=== PATIENT | male | born 1985 | race Caucasian/White ===

== ENCOUNTER 2023-02-24 11:18 | Emergency (ER) | payer OTHER, SELFPAY ==
--- NOTE | ~2023-02-24 | XR_ITS ---
EXAMINATION: XR CHEST CLINICAL INFORMATION: Lower extremity edema. Question CHF. COMPARISON: None available. TECHNIQUE: Frontal view of the chest was obtained. FINDINGS: No significant abnormality is noted involving the heart, lungs, mediastinum, bony thorax or soft tissues. XR/XR chest 1V IMPRESSION: Unremarkable examination.
--- NOTE | ~2023-02-24 | US_ITS ---
EXAMINATION: US VENOUS ULTRASOUND WITH DOPPLER LOWER EXTREMITY, BILATERAL CLINICAL INFORMATION: Hip is not visualized. COMPARISON: None available. TECHNIQUE: Ultrasound of the deep veins is performed from the hip to the calf with compression sonography and color and pulse Doppler assessment. Spectral analysis with color-flow imaging is performed. FINDINGS: RIGHT: There is normal venous compression and respiratory variation and augmented flow. The visualized common femoral vein, superficial femoral vein, profunda femoral vein, popliteal vein, and the trifurcation region shows no evidence of deep venous thrombosis. The peroneal vein is not visualized due to calf swelling. There is no significant popliteal fossa cyst. There is a small lymph nodes in the right groin measuring 5.4 x 1.1 x 2.8 cm. LEFT: There is normal venous compression and respiratory variation and augmented flow. The visualized common femoral vein, superficial femoral vein, profunda femoral vein, popliteal vein, and the trifurcation region shows no evidence of deep venous thrombosis. The peroneal vein is not visualized due to calf swelling. There is no significant popliteal fossa cyst. There is small lymph nodes seen left groin measuring 1.5 x 0.7 x 0.9 seen. If the patient's symptoms persist, followup ultrasound in 5 days 7 days might be of value to exclude proximal propagation from a non-visualized calf vein. US/US venous duplex LE BI IMPRESSION: No DVT demonstrated in bilateral lower extremity. Bilateral groin lymph nodes seen.
--- NOTE | ~2023-02-24 | CT_ITS ---
EXAMINATION: CT ANGIOGRAM OF THE CHEST WITH AND WITHOUT CONTRAST (CT PULMONARY ANGIOGRAM FOR PE) CLINICAL INFORMATION: Reason for Exam tachy, hypoxia COMPARISON: None available. TECHNIQUE: Prior to contrast administration, noncontrast localization images were obtained. Subsequently, multidetector volumetric imaging was performed from the thoracic inlet to below the diaphragms following the administration of 80 mL Omnipaque 350 intravenous contrast. No contrast reaction reported Sagittal, coronal, and MIP oblique sagittal reformatted images were obtained on the CT workstation, uploaded to PACS, and reviewed. This CT examination was performed using dose optimization techniques as appropriate, variously including the following: *Automated exposure control *Adjustment of mA and/or kV according to patient size (this includes techniques or standardized protocols for targeted exams where dose is matched to indication/reason for exam; i.e. extremities or head) *Use of iterative reconstruction technique Total exam dose-length product 640 mGy-cm FINDINGS: QUALITY OF STUDY/CONTRAST BOLUS: Satisfactory. PULMONARY ARTERIES: No pulmonary emboli. THORACIC AORTA: No aneurysm. LUNG: No focal consolidation, nodules or masses. PLEURA: No pleural effusion or pneumothorax. MEDIASTINUM: Normal heart size. No pericardial effusion. No hilar or mediastinal lymphadenopathy. No evidence of septal bowing or right heart strain. CORONARY ARTERY CALCIFICATION: None visualized on this study. CHEST WALL/AXILLA: No axillary or internal mammary lymphadenopathy. OSSEOUS STRUCTURES: No lytic or sclerotic process seen. UPPER ABDOMEN: Visualized liver, spleen, pancreas and bilateral adrenal glands are unremarkable. No reflux of contrast into the hepatic veins to suggest elevated right heart pressures. CT/CT angio chest PE protocol IMPRESSION: 1. No evidence of PE. 2. No evidence of aortic dissection or aneurysm no evidence of PE. VTE: negative
--- NOTE | 2023-02-24 11:44 | ED_ITS ---
HPI - General Adult General Chief complaint: Extremity Problem <XOCHILT Duran Last Filed: 02/24/23 11:56> Stated complaint: B/L Swollen Legs <XOCHILT Duran - Last Filed: 02/24/23 11:56> Time Seen by Provider: 02/24/23 11:53 <XOCHILT Duran - Last Filed: 02/24/23 11:56> Source: patient <XOCHILT Montoya - Last Filed: 02/24/23 17:02> Mode of arrival: ambulatory <XOCHILT Montoya Last Filed: 02/24/23 17:02> History of Present Illness HPI narrative: 37-year-old male with history of IV drug use presents to the ED c/o worsening bilateral LE swelling & erythema since yesterday. Admits has been walking more than usual for the past couple days. Reports 1 episode of nausea and emesis this morning which has resolved. Denies injury to the area, recent immobility, history of blood clots, blood thinner use, chest pain, shortness of breath, headache, dizziness, lightheadedness, abdominal pain, back pain, change in bladder/bowel habits. <XOCHILT Montoya - Last Filed: 02/24/23 17:02> Onset (ago): day(s) <XOCHILT Montoya - Last Filed: 02/24/23 17:02> Location: left, right and lower extremity <XOCHILT Montoya Last Filed: 02/24/23 17:02> Radiation: non-radiation <XOCHILT Montoya Last Filed: 02/24/23 17:02> Quality: aching <XOCHILT Montoya Last Filed: 02/24/23 17:02> Pain Consistency: constant <XOCHILT Montoya Last Filed: 02/24/23 17:02> Related Data Home medications: Previous Rx's Medication Instructions Recorded doxycycline hyclate 100 mg tablet 100 mg PO BID #14 tabs 02/24/23 cephalexin 500 mg capsule 500 mg PO Q6H 7 days #28 caps 02/25/23 <XOCHILT Duran Last Filed: 02/24/23 11:56> Allergies/adverse reactions: Allergies Allergy/AdvReac Type Severity Reaction Status Date / Time No Known Allergies Allergy Verified 02/24/23 11:45 <XOCHILT Duran - Last Filed: 02/24/23 11:56> Review of Systems Review of Systems: Constitutional: No Fever, No Chills, No Fatigue, No Malaise ENT/Mouth: No Nasal Congestion, No sore throat, No Rhinorrhea, No Swallowing Difficulty Eyes: No Eye Pain, No Swelling, No Redness, No Foreign Body, No Discharge, No Vision Changes Cardiovascular: No Chest Pain, No SOB, No Dyspnea on Exertion, No Orthopnea, +Edema, No Palpitations Respiratory: No Cough, No Sputum, No Wheezing, + Smoker, No Dyspnea Gastrointestinal: + Nausea, + Vomiting, No Diarrhea, No Constipation, No Abdominal pain Genitourinary: No irregular bleeding, No Dysuria, No Urinary Frequency, No Hematuria, No Urinary Incontinence/retention Musculoskeletal: +joint pain, No Myalgias, No Joint Swelling Skin: No Skin Lesions, + rash Neuro: No Weakness, No Numbness, No Paresthesias, No Loss of Consciousness, No Dizziness, No Headache <XOCHILT Montoya Last Filed: 02/24/23 17:02> Yes all other systems are reviewed and are negative <XOCHILT Montoya Last Filed: 02/24/23 17:02> Constitutional: Constitutional: Reports as per HPI <XOCHILT Montoya Last Filed: 02/24/23 17:02> [facility] Past Medical History Attestation statement: The following information was validated with the patient. <XOCHILT Montoya Last Filed: 02/24/23 17:02> Social History Social History: Social History Alcohol intake: never Smoked in Last 30 Days: Yes Use of substances other than those prescribed or required for medical reasons: Yes Substance Use Type: Heroin Substance Use Frequency: Chronic Longstanding Last Used Substance: Days (ago) Any prior treatment program specific to substance use: Yes Advance Directives: No <XOCHILT Duran Last Filed: 02/24/23 11:56> Physical Exam ED Vital Signs: Vital Signs - 24 hr 02/24/23 12:18 02/24/23 19:35 02/24/23 22:38 Temperature 98.2 F 97.6 F 97.8 F Pulse Rate 98 93 71 Respiratory Rate 14 17 18 Blood Pressure 128/82 120/83 121/77 Pulse Oximetry 95 95 96 Oxygen Delivery Method Room Air Room Air 02/25/23 05:55 02/25/23 07:40 02/25/23 10:48 Temperature 98.3 F 98.5 F Pulse Rate 102 H 92 85 Respiratory Rate 18 18 18 Blood Pressure 133/85 141/84 H 129/73 Pulse Oximetry 96 96 94 Oxygen Delivery Method Room Air Room Air BMI result Body Mass Index 41.8 <XOCHILT Duran - Last Filed: 02/24/23 11:56> Vital Signs - 24 hr 02/24/23 12:18 02/24/23 19:35 02/24/23 22:38 Temperature 98.2 F 97.6 F 97.8 F Pulse Rate 98 93 71 Respiratory Rate 14 17 18 Blood Pressure 128/82 120/83 121/77 Pulse Oximetry 95 95 96 Oxygen Delivery Method Room Air Room Air 02/25/23 05:55 02/25/23 07:40 02/25/23 10:48 Temperature 98.3 F 98.5 F Pulse Rate 102 H 92 85 Respiratory Rate 18 18 18 Blood Pressure 133/85 141/84 H 129/73 Pulse Oximetry 96 96 94 Oxygen Delivery Method Room Air Room Air BMI result Body Mass Index 41.8 <XOCHILT Montoya - Last Filed: 02/24/23 17:02> Vital Signs - 24 hr 02/24/23 12:18 02/24/23 19:35 02/24/23 22:38 Temperature 98.2 F 97.6 F 97.8 F Pulse Rate 98 93 71 Respiratory Rate 14 17 18 Blood Pressure 128/82 120/83 121/77 Pulse Oximetry 95 95 96 Oxygen Delivery Method Room Air Room Air 02/25/23 05:55 02/25/23 07:40 02/25/23 10:48 Temperature 98.3 F 98.5 F Pulse Rate 102 H 92 85 Respiratory Rate 18 18 18 Blood Pressure 133/85 141/84 H 129/73 Pulse Oximetry 96 96 94 Oxygen Delivery Method Room Air Room Air BMI result Body Mass Index 41.8 <Zane Mendez - Last Filed: 02/25/23 00:18> Vital Signs - 24 hr 02/24/23 12:18 02/24/23 19:35 02/24/23 22:38 Temperature 98.2 F 97.6 F 97.8 F Pulse Rate 98 93 71 Respiratory Rate 14 17 18 Blood Pressure 128/82 120/83 121/77 Pulse Oximetry 95 95 96 Oxygen Delivery Method Room Air Room Air 02/25/23 05:55 02/25/23 07:40 02/25/23 10:48 Temperature 98.3 F 98.5 F Pulse Rate 102 H 92 85 Respiratory Rate 18 18 18 Blood Pressure 133/85 141/84 H 129/73 Pulse Oximetry 96 96 94 Oxygen Delivery Method Room Air Room Air BMI result Body Mass Index 41.8 <XOCHILT Sterling - Last Filed: 02/25/23 12:14> Const General: cooperative and no acute distress <XOCHILT Montoya - Last Filed: 02/24/23 17:02> Nutritional Appearance: well nourished <XOCHILT Montoya - Last Filed: 02/24/23 17:02> Orientation/consciousness: patient oriented x3 <XCOHILT Montoya - Last Filed: 02/24/23 17:02> Limitations: no limitations <XOCHILT Montoya - Last Filed: 02/24/23 17:02> HENMT Head: Yes normal to inspection and Yes atraumatic <XOCHILT Montoya - Last Filed : 02/24/23 17:02> Ears: hearing grossly normal bilaterally <XOCHILT Montoya - Last Filed: 02/24/23 17:02> General nose exam: Normal external nose present <XOCHILT Montoya Last Filed: 02/24/23 17:02> Face and sinus: Yes normal facial exam <XOCHILT Montoya - Last Filed: 02/24/23 17:02> Eyes General: appearance normal, both eyes and all related structures <XOCHILT Montoya Last Filed: 02/24/23 17:02> EOM: EOMs intact bilaterally <XOCHILT Montoya - Last Filed: 02/24/23 17:02> Neck Neck: Yes normal visual inspection, Yes full ROM and Yes no meningeal signs <XOCHILT Montoya - Last Filed: 02/24/23 17:02> Resp Effort & Inspection: normal respiratory effort, able to speak in complete sentences and no respiratory distress <XOCHILT Montoya - Last Filed: 02/24/23 17:02> Auscultation: clear to auscultation bilaterally <XOCHILT Montoya - Last Filed: 02/24/23 17:02> Cardio Rate: regular rate <XOCHILT Montoya - Last Filed: 02/24/23 17:02> Rhythm: regular rhythm <XOCHILT Montoya - Last Filed: 02/24/23 17:02> Heart sounds: S1 normal heart sound present and S2 normal heart sound present <XOCHILT Montoya - Last Filed: 02/24/23 17:02> Peripheral pulses: Peripheral pulses 2+ throughout <XOCHILT Montoya - Last Filed: 02/24/23 17:02> GI Inspection: Yes normal to inspection <XOCHILT Montoya - Last Filed: 02/24/23 17:02> Palpation (GI): Soft to palpation, nontender, no guarding and not rigid <XOCHILT Montoya - Last Filed: 02/24/23 17:02> Skin Wounds: no wounds <XOCHILT Montoya - Last Filed: 02/24/23 17:02> Neuro General: patient oriented x3, tone normal, moves all extremities and no meningeal signs <XOCHILT Montoya - Last Filed: 02/24/23 17:02> Extrem Other: +Bilateral LE pitting edema R>L with overlying circumferential erythema & warmth, + tender to palpation. No open wounds/deformity/crepitus or leakage. NV intact <XOCHILT Montoya - Last Filed: 02/24/23 17:02> Course Course Course Narrative: This is an RME: Additional HPI, ROS, PE not included below will be deferred to primary provider. This is a 37-year-old male history of IV drug abuse, obesity presenting to the emergency department with complaints of bilateral lower extremity pain, swelling, redness since yesterday. Patient reports this happened suddenly and has been worsening ever since. He reports at times pain is worse with ambulation and better at rest. On exam patient is noted to have erythema and swelling to bilateral lower extremities. It appears to be 2 to 3+ nonpitting edema. Heart rate in the high 100s -150-190s. Saturating 94%. Will try to bring him straight back to the emergency department obtain EKG at this time. <XOCHILT Duran - Last Filed: 02/24/23 11:56> This is an RME: Additional HPI, ROS, PE not included below will be deferred to primary provider. This is a 37-year-old male history of IV drug abuse, obesity presenting to the emergency department with complaints of bilateral lower extremity pain, swelling, redness since yesterday. Patient reports this happened suddenly and has been worsening ever since. He reports at times pain is worse with ambulation and better at rest. On exam patient is noted to have erythema and swelling to bilateral lower extremities. It appears to be 2 to 3+ nonpitting edema. Heart rate in the high 100s -150-190s. Saturating 94%. Will try to bring him straight back to the emergency department obtain EKG at this time. -1500--no leukocytosis. Labs otherwise reassuring. US venous duplex LE BI IMPRESSION: No DVT demonstrated in bilateral lower extremity. ? Bilateral groin lymph nodes seen. CT angio chest PE protocol IMPRESSION: 1.? No evidence of PE. 2.? No evidence of aortic dissection or aneurysm no evidence of PE. ? VTE: negative > will consult hospitalist for potential admission. ED care transferred to XOCHILT Adams pending disposition <XOCHILT Montoya - Last Filed: 02/24/23 17:02> Reevaluation(s) Reevaluation #1: Patient received in sign-out at change of shift pending hospitalist consult and disposition. The patient was seen by Dr Bautista. He feels the patient can be discharged as he is not septic. I evaluated the patient myself, and the patient has no white count, he is afebrile. I feel the rash may be vasculitis rather than cellulitis. Given the IV drug abuse I feel it is appropriate to cover the patient with doxycycline. The patient is interested in detox, a care team consult was ordered <Zane Mendez - Last Filed: 02/25/23 00:18> Time: 17:28 <Zane Andrea - Last Filed: 02/25/23 00:18> Reevaluation #2: Patient was seen by the care team in the extremity at the patient to detox but thus far the patient has a current [address] at [facility]. <Popeye sudhakar Mendez - Last Filed: 02/25/23 00:18> Time: 20:02 <Zane Mendez - Last Filed: 02/25/23 00:18> Reevaluation #3: Care team would like to re-attempt in the morning to placed the patient in rehab. I did send the patient's prescription for doxycycline to his pharmacy he received IV Rocephin in the ER today. <Zane Andrea - Last Filed: 02/25/23 00:18> Time: 00:18 <Zane Mendez - Last Filed: 02/25/23 00:18> Additional Reevaluation(s): 02/25 @ 7am - no acute overnight events. patient resting comfortably this morning. He has been started on abx for LE cellulitis. CARE team to attempt detox bed search again this morning. will continue to monitor. will monitor cows qshift. 12:14pm - Patient seen and evaluated by the recovery team. To bed search is were made to the facilities that allow the patient to smoke there. Unfortunately are no beds available, he would like to go home and continue mike ling from home. Will discharge him on oral antibiotics for lower extremity cellulitis. Stable for discharge home. Physician observation discontinued at this time <XOCHILT Sterling - Last Filed: 02/25/23 12:14> Medications Administered Generic Name Dose Route Start Last Admin Trade Name Freq PRN Reason Stop Dose Admin Doxycycline Monohydrate 100 mg 02/25/23 09:00 02/25/23 08:37 Doxycycline Monohydrate 100 Mg Capsule PO 100 mg BID ARLENE Administration Discontinued Medications Generic Name Dose Route Start Last Admin Trade Name Freq PRN Reason Stop Dose Admin Famotidine 20 mg 02/25/23 10:44 02/25/23 10:54 Famotidine 20 Mg Tablet PO 02/25/23 10:45 20 mg ONCE ONE Administration Ceftriaxone Sodium 1 gm/ 50 mls @ 100 mls/hr 02/24/23 15:03 02/24/23 15:49 Sodium Chloride IV 02/24/23 15:32 Infused ONCE ONE Infusion Iohexol 100 ml 02/24/23 15:49 02/24/23 15:49 Iohexol 350 Mg/Ml 100 Ml Infus..Btl IV 02/24/23 15:50 85 ml ONCE ONE Administration Loperamide HCl 2 mg 02/25/23 10:44 02/25/23 10:54 Loperamide Hcl 2 Mg Capsule PO 02/25/23 10:45 2 mg ONCE ONE Administration Ondansetron HCl 4 mg 02/25/23 10:44 02/25/23 10:54 Ondansetron Odt 4 Mg Tab.Rapdis TRANSLINGU 02/25/23 10:45 4 mg ONCE ONE Administration <XOCHILT Duran - Last Filed: 02/24/23 11:56> Medications Administered Generic Name Dose Route Start Last Admin Trade Name Freq PRN Reason Stop Dose Admin Doxycycline Monohydrate 100 mg 02/25/23 09:00 02/25/23 08:37 Doxycycline Monohydrate 100 Mg Capsule PO 100 mg BID ARLENE Administration Discontinued Medications Generic Name Dose Route Start Last Admin Trade Name Freq PRN Reason Stop Dose Admin Famotidine 20 mg 02/25/23 10:44 02/25/23 10:54 Famotidine 20 Mg Tablet PO 02/25/23 10:45 20 mg ONCE ONE Administration Ceftriaxone Sodium 1 gm/ 50 mls @ 100 mls/hr 02/24/23 15:03 02/24/23 15:49 Sodium Chloride IV 02/24/23 15:32 Infused ONCE ONE Infusion Iohexol 100 ml 02/24/23 15:49 02/24/23 15:49 Iohexol 350 Mg/Ml 100 Ml Infus..Btl IV 02/24/23 15:50 85 ml ONCE ONE Administration Loperamide HCl 2 mg 02/25/23 10:44 02/25/23 10:54 Loperamide Hcl 2 Mg Capsule PO 02/25/23 10:45 2 mg ONCE ONE Administration Ondansetron HCl 4 mg 02/25/23 10:44 02/25/23 10:54 Ondansetron Odt 4 Mg Tab.Rapdis TRANSLINGU 02/25/23 10:45 4 mg ONCE ONE Administration <XOCHILT Montoya - Last Filed: 02/24/23 17:02> Medications Administered Generic Name Dose Route Start Last Admin Trade Name Freq PRN Reason Stop Dose Admin Doxycycline Monohydrate 100 mg 02/25/23 09:00 02/25/23 08:37 Doxycycline Monohydrate 100 Mg Capsule PO 100 mg BID ARLENE Administration Discontinued Medications Generic Name Dose Route Start Last Admin Trade Name Freq PRN Reason Stop Dose Admin Famotidine 20 mg 02/25/23 10:44 02/25/23 10:54 Famotidine 20 Mg Tablet PO 02/25/23 10:45 20 mg ONCE ONE Administration Ceftriaxone Sodium 1 gm/ 50 mls @ 100 mls/hr 02/24/23 15:03 02/24/23 15:49 Sodium Chloride IV 02/24/23 15:32 Infused ONCE ONE Infusion Iohexol 100 ml 02/24/23 15:49 02/24/23 15:49 Iohexol 350 Mg/Ml 100 Ml Infus..Btl IV 02/24/23 15:50 85 ml ONCE ONE Administration Loperamide HCl 2 mg 02/25/23 10:44 02/25/23 10:54 Loperamide Hcl 2 Mg Capsule PO 02/25/23 10:45 2 mg ONCE ONE Administration Ondansetron HCl 4 mg 02/25/23 10:44 02/25/23 10:54 Ondansetron Odt 4 Mg Tab.Rapdis TRANSLINGU 02/25/23 10:45 4 mg ONCE ONE Administration <Zane Mendez - Last Filed: 02/25/23 00:18> Medications Administered Generic Name Dose Route Start Last Admin Trade Name Freq PRN Reason Stop Dose Admin Doxycycline Monohydrate 100 mg 02/25/23 09:00 02/25/23 08:37 Doxycycline Monohydrate 100 Mg Capsule PO 100 mg BID ARLENE Administration Discontinued Medications Generic Name Dose Route Start Last Admin Trade Name Freq PRN Reason Stop Dose Admin Famotidine 20 mg 02/25/23 10:44 02/25/23 10:54 Famotidine 20 Mg Tablet PO 02/25/23 10:45 20 mg ONCE ONE Administration Ceftriaxone Sodium 1 gm/ 50 mls @ 100 mls/hr 02/24/23 15:03 02/24/23 15:49 Sodium Chloride IV 02/24/23 15:32 Infused ONCE ONE Infusion Iohexol 100 ml 02/24/23 15:49 02/24/23 15:49 Iohexol 350 Mg/Ml 100 Ml Infus..Btl IV 02/24/23 15:50 85 ml ONCE ONE Administration Loperamide HCl 2 mg 02/25/23 10:44 02/25/23 10:54 Loperamide Hcl 2 Mg Capsule PO 02/25/23 10:45 2 mg ONCE ONE Administration Ondansetron HCl 4 mg 02/25/23 10:44 02/25/23 10:54 Ondansetron Odt 4 Mg Tab.Rapdis TRANSLINGU 02/25/23 10:45 4 mg ONCE ONE Administration <XOCHILT Sterling - Last Filed: 02/25/23 12:14> Medical Decision Making Medical Decision Making MDM Narrative: 37-year-old male with history of IV drug use presents to the ED c/o worsening bilateral LE swelling & erythema since yesterday. Admits has been walking more than usual for the past couple days. On exam patient initially tachycardic with a HR of 200 in triage, on this pattern chart writer's evaluation heart rate now 98. +bilateral LE pitting edema & warmth w/ttp. Concern for DVT/PE vs cellulitis vs arrhythmia. Low concern for compartment syndrome, fracture, ACS Plan: EKG, labs, lactic/blood cultures, venous duplex ultrasound, CTA, admission Please refer to course for remaining clinical decision making, interpretation of labs/imaging results, and discussions with consultants and/or family members. <XOCHILT Montoya - Last Filed: 02/24/23 17:02> Differential Diagnosis Differential Diagnoses: The differential diagnosis associated with the presentation includes <XOCHILT Montoya - Last Filed: 02/24/23 17:02> As above <XOCHILT Montoya - Last Filed: 02/24/23 17:02> Admission/Observation Consideration of admission/observation: Escalation of care including admission/observation considered <XOCHILT Montoya - Last Filed: 02/24/23 17:02> Lab Data [facility] Lab Attestation statement: I reviewed the patient's lab results. <XOCHILT Montoya - Last Filed: 02/24/23 17:02> Result Diagrams: 02/24/23 12:16 02/24/23 12:16 <XOCHILT Duran - Last Filed: 02/24/23 11:56> Labs: Lab Results 02/24/23 02/24/23 02/24/23 Range/Units 12:16 12:16 12:16 WBC 10.0 (4.8-10.8) X10*3/uL RBC 4.87 (4.60-5.80) X10*6/uL Hgb 12.6 L (14.0-18.0) g/dl Hct 39.5 L (42.0-52.0) % MCV 81.1 (80.0-98.0) fL MCH 25.9 L (27.0-33.0) pg MCHC 31.9 (31.0-36.0) g/dl RDW 15.7 (11.0-16.0) % Plt Count 242 (160-400) X10*3/uL MPV 8.5 L (9.4-12.4) fL Immature Gran % (Auto) 0.3 (0.0-0.4) % Neut % (Auto) 81.2 H (45-73) % Lymph % (Auto) 8.3 L (20-40) % Dickens % (Auto) 8.7 (2-11) % Eos % (Auto) 1.2 (0-4) % Baso % (Auto) 0.3 (0-2) % Lymph # (Auto) 0.8 L (1.2-4.9) X10*3/uL Dickens # (Auto) 0.9 (0.1-1.2) X10*3/uL Eos # (Auto) 0.1 (0.0-0.4) X10*3/uL Baso # (Auto) 0.0 (0.0-0.2) X10*3/uL Abs Immat Gran (auto) 0.03 (0.00-0.03) X10*3/uL Absolute Neuts (auto) 8.1 (2.0-8.3) x10*3/uL Absolute Nucleated RBC 0.000 (0.0-0.012) X10*3/uL Nucleated RBC % (auto) 0.0 (0.0-0.2) /100WBC PT 11.9 (10.0-13.1) SEC INR 1.0 (0.9-1.1) Sodium 137 (135-145) mmol/L Potassium 3.9 (3.3-5.1) mmol/L Chloride 101 (96-108) mmol/L Carbon Dioxide 28 (22-29) mmol/L Anion Gap 12 (12-20) BUN 12 (9-16) mg/dL Creatinine 0.84 (0.5-1.4) mg/dL Estim Creat Clear Calc 171.2 Estimated GFR > 60 Random Glucose 119 H (60-115) mg/dL Lactic Acid (0.5-2.0) mmol/L Calcium 8.4 (8.4-10.2) mg/dL Magnesium 1.8 (1.6-2.6) mg/dL Total Bilirubin 0.6 (0.0-1.0) mg/dL AST 24 (5-37) U/L ALT 26 (0-40) U/L Alkaline Phosphatase 80 (39-117) U/L B-Natriuretic Peptide (<100) pg/mL Total Protein 6.6 (6.5-8.0) g/dL Albumin 3.6 (3.5-5.0) g/dL Urine Opiates Screen (Not Detect) Urine Fentanyl Screen (Not Detect) Ur Barbiturates Screen (Not Detect) Ur Phencyclidine Scrn (Not Detect) Ur Amphetamines Screen (Not Detect) U Benzodiazepines Scrn (Not Detect) Urine Cocaine Screen (Not Detect) U Marijuana (THC) Screen (Not Detect) Ethyl Alcohol mg/dL COVID-19 (RANJAN) (Negative) COVID-19 Clin Com 02/24/23 02/24/23 02/24/23 Range/Units 12:16 12:16 12:16 WBC (4.8-10.8) X10*3/uL RBC (4.60-5.80) X10*6/uL Hgb (14.0-18.0) g/dl Hct (42.0-52.0) % MCV (80.0-98.0) fL MCH (27.0-33.0) pg MCHC (31.0-36.0) g/dl RDW (11.0-16.0) % Plt Count (160-400) X10*3/uL MPV (9.4-12.4) fL Immature Gran % (Auto) (0.0-0.4) % Neut % (Auto) (45-73) % Lymph % (Auto) (20-40) % Dickens % (Auto) (2-11) % Eos % (Auto) (0-4) % Baso % (Auto) (0-2) % Lymph # (Auto) (1.2-4.9) X10*3/uL Dickens # (Auto) (0.1-1.2) X10*3/uL Eos # (Auto) (0.0-0.4) X10*3/uL Baso # (Auto) (0.0-0.2) X10*3/uL Abs Immat Gran (auto) (0.00-0.03) X10*3/uL Absolute Neuts (auto) (2.0-8.3) x10*3/uL Absolute Nucleated RBC (0.0-0.012) X10*3/uL Nucleated RBC % (auto) (0.0-0.2) /100WBC PT (10.0-13.1) SEC INR (0.9-1.1) Sodium (135-145) mmol/L Potassium (3.3-5.1) mmol/L Chloride (96-108) mmol/L Carbon Dioxide (22-29) mmol/L Anion Gap (12-20) BUN (9-16) mg/dL Creatinine (0.5-1.4) mg/dL Estim Creat Clear Calc Estimated GFR Random Glucose (60-115) mg/dL Lactic Acid 1.0 (0.5-2.0) mmol/L Calcium (8.4-10.2) mg/dL Magnesium (1.6-2.6) mg/dL Total Bilirubin (0.0-1.0) mg/dL AST (5-37) U/L ALT (0-40) U/L Alkaline Phosphatase (39-117) U/L B-Natriuretic Peptide 65 (<100) pg/mL Total Protein (6.5-8.0) g/dL Albumin (3.5-5.0) g/dL Urine Opiates Screen (Not Detect) Urine Fentanyl Screen (Not Detect) Ur Barbiturates Screen (Not Detect) Ur Phencyclidine Scrn (Not Detect) Ur Amphetamines Screen (Not Detect) U Benzodiazepines Scrn (Not Detect) Urine Cocaine Screen (Not Detect) U Marijuana (THC) Screen (Not Detect) Ethyl Alcohol mg/dL COVID-19 (RANJAN) Negative (Negative) COVID-19 Clin Com See Note 02/24/23 02/24/23 Range/Units 19:32 22:24 WBC (4.8-10.8) X10*3/uL RBC (4.60-5.80) X10*6/uL Hgb (14.0-18.0) g/dl Hct (42.0-52.0) % MCV (80.0-98.0) fL MCH (27.0-33.0) pg MCHC (31.0-36.0) g/dl RDW (11.0-16.0) % Plt Count (160-400) X10*3/uL MPV (9.4-12.4) fL Immature Gran % (Auto) (0.0-0.4) % Neut % (Auto) (45-73) % Lymph % (Auto) (20-40) % Dickens % (Auto) (2-11) % Eos % (Auto) (0-4) % Baso % (Auto) (0-2) % Lymph # (Auto) (1.2-4.9) X10*3/uL Dickens # (Auto) (0.1-1.2) X10*3/uL Eos # (Auto) (0.0-0.4) X10*3/uL Baso # (Auto) (0.0-0.2) X10*3/uL Abs Immat Gran (auto) (0.00-0.03) X10*3/uL Absolute Neuts (auto) (2.0-8.3) x10*3/uL Absolute Nucleated RBC (0.0-0.012) X10*3/uL Nucleated RBC % (auto) (0.0-0.2) /100WBC PT (10.0-13.1) SEC INR (0.9-1.1) Sodium (135-145) mmol/L Potassium (3.3-5.1) mmol/L Chloride (96-108) mmol/L Carbon Dioxide (22-29) mmol/L Anion Gap (12-20) BUN (9-16) mg/dL Creatinine (0.5-1.4) mg/dL Estim Creat Clear Calc Estimated GFR Random Glucose (60-115) mg/dL Lactic Acid (0.5-2.0) mmol/L Calcium (8.4-10.2) mg/dL Magnesium (1.6-2.6) mg/dL Total Bilirubin (0.0-1.0) mg/dL AST (5-37) U/L ALT (0-40) U/L Alkaline Phosphatase (39-117) U/L B-Natriuretic Peptide (<100) pg/mL Total Protein (6.5-8.0) g/dL Albumin (3.5-5.0) g/dL Urine Opiates Screen POSITIVE H (Not Detect) Urine Fentanyl Screen POSITIVE H (Not Detect) Ur Barbiturates Screen Not Detected (Not Detect) Ur Phencyclidine Scrn Not Detected (Not Detect) Ur Amphetamines Screen Not Detected (Not Detect) U Benzodiazepines Scrn Not Detected (Not Detect) Urine Cocaine Screen POSITIVE H (Not Detect) U Marijuana (THC) Screen Not Detected (Not Detect) Ethyl Alcohol < 10 mg/dL COVID-19 (RANJAN) (Negative) COVID-19 Clin Com <XOCHILT Duran - Last Filed: 02/24/23 11:56> Lab Results 02/24/23 02/24/23 02/24/23 Range/Units 12:16 12:16 12:16 WBC 10.0 (4.8-10.8) X10*3/uL RBC 4.87 (4.60-5.80) X10*6/uL Hgb 12.6 L (14.0-18.0) g/dl Hct 39.5 L (42.0-52.0) % MCV 81.1 (80.0-98.0) fL MCH 25.9 L (27.0-33.0) pg MCHC 31.9 (31.0-36.0) g/dl RDW 15.7 (11.0-16.0) % Plt Count 242 (160-400) X10*3/uL MPV 8.5 L (9.4-12.4) fL Immature Gran % (Auto) 0.3 (0.0-0.4) % Neut % (Auto) 81.2 H (45-73) % Lymph % (Auto) 8.3 L (20-40) % Dickens % (Auto) 8.7 (2-11) % Eos % (Auto) 1.2 (0-4) % Baso % (Auto) 0.3 (0-2) % Lymph # (Auto) 0.8 L (1.2-4.9) X10*3/uL Dickens # (Auto) 0.9 (0.1-1.2) X10*3/uL Eos # (Auto) 0.1 (0.0-0.4) X10*3/uL Baso # (Auto) 0.0 (0.0-0.2) X10*3/uL Abs Immat Gran (auto) 0.03 (0.00-0.03) X10*3/uL Absolute Neuts (auto) 8.1 (2.0-8.3) x10*3/uL Absolute Nucleated RBC 0.000 (0.0-0.012) X10*3/uL Nucleated RBC % (auto) 0.0 (0.0-0.2) /100WBC PT 11.9 (10.0-13.1) SEC INR 1.0 (0.9-1.1) Sodium 137 (135-145) mmol/L Potassium 3.9 (3.3-5.1) mmol/L Chloride 101 (96-108) mmol/L Carbon Dioxide 28 (22-29) mmol/L Anion Gap 12 (12-20) BUN 12 (9-16) mg/dL Creatinine 0.84 (0.5-1.4) mg/dL Estim Creat Clear Calc 171.2 Estimated GFR > 60 Random Glucose 119 H (60-115) mg/dL Lactic Acid (0.5-2.0) mmol/L Calcium 8.4 (8.4-10.2) mg/dL Magnesium 1.8 (1.6-2.6) mg/dL Total Bilirubin 0.6 (0.0-1.0) mg/dL AST 24 (5-37) U/L ALT 26 (0-40) U/L Alkaline Phosphatase 80 (39-117) U/L B-Natriuretic Peptide (<100) pg/mL Total Protein 6.6 (6.5-8.0) g/dL Albumin 3.6 (3.5-5.0) g/dL Urine Opiates Screen (Not Detect) Urine Fentanyl Screen (Not Detect) Ur Barbiturates Screen (Not Detect) Ur Phencyclidine Scrn (Not Detect) Ur Amphetamines Screen (Not Detect) U Benzodiazepines Scrn (Not Detect) Urine Cocaine Screen (Not Detect) U Marijuana (THC) Screen (Not Detect) Ethyl Alcohol mg/dL COVID-19 (RANJAN) (Negative) COVID-19 Clin Com 02/24/23 02/24/23 02/24/23 Range/Units 12:16 12:16 12:16 WBC (4.8-10.8) X10*3/uL RBC (4.60-5.80) X10*6/uL Hgb (14.0-18.0) g/dl Hct (42.0-52.0) % MCV (80.0-98.0) fL MCH (27.0-33.0) pg MCHC (31.0-36.0) g/dl RDW (11.0-16.0) % Plt Count (160-400) X10*3/uL MPV (9.4-12.4) fL Immature Gran % (Auto) (0.0-0.4) % Neut % (Auto) (45-73) % Lymph % (Auto) (20-40) % Dickens % (Auto) (2-11) % Eos % (Auto) (0-4) % Baso % (Auto) (0-2) % Lymph # (Auto) (1.2-4.9) X10*3/uL Dickens # (Auto) (0.1-1.2) X10*3/uL Eos # (Auto) (0.0-0.4) X10*3/uL Baso # (Auto) (0.0-0.2) X10*3/uL Abs Immat Gran (auto) (0.00-0.03) X10*3/uL Absolute Neuts (auto) (2.0-8.3) x10*3/uL Absolute Nucleated RBC (0.0-0.012) X10*3/uL Nucleated RBC % (auto) (0.0-0.2) /100WBC PT (10.0-13.1) SEC INR (0.9-1.1) Sodium (135-145) mmol/L Potassium (3.3-5.1) mmol/L Chloride (96-108) mmol/L Carbon Dioxide (22-29) mmol/L Anion Gap (12-20) BUN (9-16) mg/dL Creatinine (0.5-1.4) mg/dL Estim Creat Clear Calc Estimated GFR Random Glucose (60-115) mg/dL Lactic Acid 1.0 (0.5-2.0) mmol/L Calcium (8.4-10.2) mg/dL Magnesium (1.6-2.6) mg/dL Total Bilirubin (0.0-1.0) mg/dL AST (5-37) U/L ALT (0-40) U/L Alkaline Phosphatase (39-117) U/L B-Natriuretic Peptide 65 (<100) pg/mL Total Protein (6.5-8.0) g/dL Albumin (3.5-5.0) g/dL Urine Opiates Screen (Not Detect) Urine Fentanyl Screen (Not Detect) Ur Barbiturates Screen (Not Detect) Ur Phencyclidine Scrn (Not Detect) Ur Amphetamines Screen (Not Detect) U Benzodiazepines Scrn (Not Detect) Urine Cocaine Screen (Not Detect) U Marijuana (THC) Screen (Not Detect) Ethyl Alcohol mg/dL COVID-19 (RANJAN) Negative (Negative) COVID-19 Clin Com See Note 02/24/23 02/24/23 Range/Units 19:32 22:24 WBC (4.8-10.8) X10*3/uL RBC (4.60-5.80) X10*6/uL Hgb (14.0-18.0) g/dl Hct (42.0-52.0) % MCV (80.0-98.0) fL MCH (27.0-33.0) pg MCHC (31.0-36.0) g/dl RDW (11.0-16.0) % Plt Count (160-400) X10*3/uL MPV (9.4-12.4) fL Immature Gran % (Auto) (0.0-0.4) % Neut % (Auto) (45-73) % Lymph % (Auto) (20-40) % Dickens % (Auto) (2-11) % Eos % (Auto) (0-4) % Baso % (Auto) (0-2) % Lymph # (Auto) (1.2-4.9) X10*3/uL Dickens # (Auto) (0.1-1.2) X10*3/uL Eos # (Auto) (0.0-0.4) X10*3/uL Baso # (Auto) (0.0-0.2) X10*3/uL Abs Immat Gran (auto) (0.00-0.03) X10*3/uL Absolute Neuts (auto) (2.0-8.3) x10*3/uL Absolute Nucleated RBC (0.0-0.012) X10*3/uL Nucleated RBC % (auto) (0.0-0.2) /100WBC PT (10.0-13.1) SEC INR (0.9-1.1) Sodium (135-145) mmol/L Potassium (3.3-5.1) mmol/L Chloride (96-108) mmol/L Carbon Dioxide (22-29) mmol/L Anion Gap (12-20) BUN (9-16) mg/dL Creatinine (0.5-1.4) mg/dL Estim Creat Clear Calc Estimated GFR Random Glucose (60-115) mg/dL Lactic Acid (0.5-2.0) mmol/L Calcium (8.4-10.2) mg/dL Magnesium (1.6-2.6) mg/dL Total Bilirubin (0.0-1.0) mg/dL AST (5-37) U/L ALT (0-40) U/L Alkaline Phosphatase (39-117) U/L B-Natriuretic Peptide (<100) pg/mL Total Protein (6.5-8.0) g/dL Albumin (3.5-5.0) g/dL Urine Opiates Screen POSITIVE H (Not Detect) Urine Fentanyl Screen POSITIVE H (Not Detect) Ur Barbiturates Screen Not Detected (Not Detect) Ur Phencyclidine Scrn Not Detected (Not Detect) Ur Amphetamines Screen Not Detected (Not Detect) U Benzodiazepines Scrn Not Detected (Not Detect) Urine Cocaine Screen POSITIVE H (Not Detect) U Marijuana (THC) Screen Not Detected (Not Detect) Ethyl Alcohol < 10 mg/dL COVID-19 (RANJAN) (Negative) COVID-19 Clin Com <XOCHILT Montoya - Last Filed: 02/24/23 17:02> Lab Results 02/24/23 02/24/23 02/24/23 Range/Units 12:16 12:16 12:16 WBC 10.0 (4.8-10.8) X10*3/uL RBC 4.87 (4.60-5.80) X10*6/uL Hgb 12.6 L (14.0-18.0) g/dl Hct 39.5 L (42.0-52.0) % MCV 81.1 (80.0-98.0) fL MCH 25.9 L (27.0-33.0) pg MCHC 31.9 (31.0-36.0) g/dl RDW 15.7 (11.0-16.0) % Plt Count 242 (160-400) X10*3/uL MPV 8.5 L (9.4-12.4) fL Immature Gran % (Auto) 0.3 (0.0-0.4) % Neut % (Auto) 81.2 H (45-73) % Lymph % (Auto) 8.3 L (20-40) % Dickens % (Auto) 8.7 (2-11) % Eos % (Auto) 1.2 (0-4) % Baso % (Auto) 0.3 (0-2) % Lymph # (Auto) 0.8 L (1.2-4.9) X10*3/uL Dickens # (Auto) 0.9 (0.1-1.2) X10*3/uL Eos # (Auto) 0.1 (0.0-0.4) X10*3/uL Baso # (Auto) 0.0 (0.0-0.2) X10*3/uL Abs Immat Gran (auto) 0.03 (0.00-0.03) X10*3/uL Absolute Neuts (auto) 8.1 (2.0-8.3) x10*3/uL Absolute Nucleated RBC 0.000 (0.0-0.012) X10*3/uL Nucleated RBC % (auto) 0.0 (0.0-0.2) /100WBC PT 11.9 (10.0-13.1) SEC INR 1.0 (0.9-1.1) Sodium 137 (135-145) mmol/L Potassium 3.9 (3.3-5.1) mmol/L Chloride 101 (96-108) mmol/L Carbon Dioxide 28 (22-29) mmol/L Anion Gap 12 (12-20) BUN 12 (9-16) mg/dL Creatinine 0.84 (0.5-1.4) mg/dL Estim Creat Clear Calc 171.2 Estimated GFR > 60 Random Glucose 119 H (60-115) mg/dL Lactic Acid (0.5-2.0) mmol/L Calcium 8.4 (8.4-10.2) mg/dL Magnesium 1.8 (1.6-2.6) mg/dL Total Bilirubin 0.6 (0.0-1.0) mg/dL AST 24 (5-37) U/L ALT 26 (0-40) U/L Alkaline Phosphatase 80 (39-117) U/L B-Natriuretic Peptide (<100) pg/mL Total Protein 6.6 (6.5-8.0) g/dL Albumin 3.6 (3.5-5.0) g/dL Urine Opiates Screen (Not Detect) Urine Fentanyl Screen (Not Detect) Ur Barbiturates Screen (Not Detect) Ur Phencyclidine Scrn (Not Detect) Ur Amphetamines Screen (Not Detect) U Benzodiazepines Scrn (Not Detect) Urine Cocaine Screen (Not Detect) U Marijuana (THC) Screen (Not Detect) Ethyl Alcohol mg/dL COVID-19 (RANJAN) (Negative) COVID-19 Clin Com 02/24/23 02/24/23 02/24/23 Range/Units 12:16 12:16 12:16 WBC (4.8-10.8) X10*3/uL RBC (4.60-5.80) X10*6/uL Hgb (14.0-18.0) g/dl Hct (42.0-52.0) % MCV (80.0-98.0) fL MCH (27.0-33.0) pg MCHC (31.0-36.0) g/dl RDW (11.0-16.0) % Plt Count (160-400) X10*3/uL MPV (9.4-12.4) fL Immature Gran % (Auto) (0.0-0.4) % Neut % (Auto) (45-73) % Lymph % (Auto) (20-40) % Dickens % (Auto) (2-11) % Eos % (Auto) (0-4) % Baso % (Auto) (0-2) % Lymph # (Auto) (1.2-4.9) X10*3/uL Dickens # (Auto) (0.1-1.2) X10*3/uL Eos # (Auto) (0.0-0.4) X10*3/uL Baso # (Auto) (0.0-0.2) X10*3/uL Abs Immat Gran (auto) (0.00-0.03) X10*3/uL Absolute Neuts (auto) (2.0-8.3) x10*3/uL Absolute Nucleated RBC (0.0-0.012) X10*3/uL Nucleated RBC % (auto) (0.0-0.2) /100WBC PT (10.0-13.1) SEC INR (0.9-1.1) Sodium (135-145) mmol/L Potassium (3.3-5.1) mmol/L Chloride (96-108) mmol/L Carbon Dioxide (22-29) mmol/L Anion Gap (12-20) BUN (9-16) mg/dL Creatinine (0.5-1.4) mg/dL Estim Creat Clear Calc Estimated GFR Random Glucose (60-115) mg/dL Lactic Acid 1.0 (0.5-2.0) mmol/L Calcium (8.4-10.2) mg/dL Magnesium (1.6-2.6) mg/dL Total Bilirubin (0.0-1.0) mg/dL AST (5-37) U/L ALT (0-40) U/L Alkaline Phosphatase (39-117) U/L B-Natriuretic Peptide 65 (<100) pg/mL Total Protein (6.5-8.0) g/dL Albumin (3.5-5.0) g/dL Urine Opiates Screen (Not Detect) Urine Fentanyl Screen (Not Detect) Ur Barbiturates Screen (Not Detect) Ur Phencyclidine Scrn (Not Detect) Ur Amphetamines Screen (Not Detect) U Benzodiazepines Scrn (Not Detect) Urine Cocaine Screen (Not Detect) U Marijuana (THC) Screen (Not Detect) Ethyl Alcohol mg/dL COVID-19 (RANJAN) Negative (Negative) COVID-19 Clin Com See Note 02/24/23 02/24/23 Range/Units 19:32 22:24 WBC (4.8-10.8) X10*3/uL RBC (4.60-5.80) X10*6/uL Hgb (14.0-18.0) g/dl Hct (42.0-52.0) % MCV (80.0-98.0) fL MCH (27.0-33.0) pg MCHC (31.0-36.0) g/dl RDW (11.0-16.0) % Plt Count (160-400) X10*3/uL MPV (9.4-12.4) fL Immature Gran % (Auto) (0.0-0.4) % Neut % (Auto) (45-73) % Lymph % (Auto) (20-40) % Dickens % (Auto) (2-11) % Eos % (Auto) (0-4) % Baso % (Auto) (0-2) % Lymph # (Auto) (1.2-4.9) X10*3/uL Dickens # (Auto) (0.1-1.2) X10*3/uL Eos # (Auto) (0.0-0.4) X10*3/uL Baso # (Auto) (0.0-0.2) X10*3/uL Abs Immat Gran (auto) (0.00-0.03) X10*3/uL Absolute Neuts (auto) (2.0-8.3) x10*3/uL Absolute Nucleated RBC (0.0-0.012) X10*3/uL Nucleated RBC % (auto) (0.0-0.2) /100WBC PT (10.0-13.1) SEC INR (0.9-1.1) Sodium (135-145) mmol/L Potassium (3.3-5.1) mmol/L Chloride (96-108) mmol/L Carbon Dioxide (22-29) mmol/L Anion Gap (12-20) BUN (9-16) mg/dL Creatinine (0.5-1.4) mg/dL Estim Creat Clear Calc Estimated GFR Random Glucose (60-115) mg/dL Lactic Acid (0.5-2.0) mmol/L Calcium (8.4-10.2) mg/dL Magnesium (1.6-2.6) mg/dL Total Bilirubin (0.0-1.0) mg/dL AST (5-37) U/L ALT (0-40) U/L Alkaline Phosphatase (39-117) U/L B-Natriuretic Peptide (<100) pg/mL Total Protein (6.5-8.0) g/dL Albumin (3.5-5.0) g/dL Urine Opiates Screen POSITIVE H (Not Detect) Urine Fentanyl Screen POSITIVE H (Not Detect) Ur Barbiturates Screen Not Detected (Not Detect) Ur Phencyclidine Scrn Not Detected (Not Detect) Ur Amphetamines Screen Not Detected (Not Detect) U Benzodiazepines Scrn Not Detected (Not Detect) Urine Cocaine Screen POSITIVE H (Not Detect) U Marijuana (THC) Screen Not Detected (Not Detect) Ethyl Alcohol < 10 mg/dL COVID-19 (RANJAN) (Negative) COVID-19 Clin Com <Zane Mendez - Last Filed: 02/25/23 00:18> Lab Results 02/24/23 02/24/23 02/24/23 Range/Units 12:16 12:16 12:16 WBC 10.0 (4.8-10.8) X10*3/uL RBC 4.87 (4.60-5.80) X10*6/uL Hgb 12.6 L (14.0-18.0) g/dl Hct 39.5 L (42.0-52.0) % MCV 81.1 (80.0-98.0) fL MCH 25.9 L (27.0-33.0) pg MCHC 31.9 (31.0-36.0) g/dl RDW 15.7 (11.0-16.0) % Plt Count 242 (160-400) X10*3/uL MPV 8.5 L (9.4-12.4) fL Immature Gran % (Auto) 0.3 (0.0-0.4) % Neut % (Auto) 81.2 H (45-73) % Lymph % (Auto) 8.3 L (20-40) % Dickens % (Auto) 8.7 (2-11) % Eos % (Auto) 1.2 (0-4) % Baso % (Auto) 0.3 (0-2) % Lymph # (Auto) 0.8 L (1.2-4.9) X10*3/uL Dickens # (Auto) 0.9 (0.1-1.2) X10*3/uL Eos # (Auto) 0.1 (0.0-0.4) X10*3/uL Baso # (Auto) 0.0 (0.0-0.2) X10*3/uL Abs Immat Gran (auto) 0.03 (0.00-0.03) X10*3/uL Absolute Neuts (auto) 8.1 (2.0-8.3) x10*3/uL Absolute Nucleated RBC 0.000 (0.0-0.012) X10*3/uL Nucleated RBC % (auto) 0.0 (0.0-0.2) /100WBC PT 11.9 (10.0-13.1) SEC INR 1.0 (0.9-1.1) Sodium 137 (135-145) mmol/L Potassium 3.9 (3.3-5.1) mmol/L Chloride 101 (96-108) mmol/L Carbon Dioxide 28 (22-29) mmol/L Anion Gap 12 (12-20) BUN 12 (9-16) mg/dL Creatinine 0.84 (0.5-1.4) mg/dL Estim Creat Clear Calc 171.2 Estimated GFR > 60 Random Glucose 119 H (60-115) mg/dL Lactic Acid (0.5-2.0) mmol/L Calcium 8.4 (8.4-10.2) mg/dL Magnesium 1.8 (1.6-2.6) mg/dL Total Bilirubin 0.6 (0.0-1.0) mg/dL AST 24 (5-37) U/L ALT 26 (0-40) U/L Alkaline Phosphatase 80 (39-117) U/L B-Natriuretic Peptide (<100) pg/mL Total Protein 6.6 (6.5-8.0) g/dL Albumin 3.6 (3.5-5.0) g/dL Urine Opiates Screen (Not Detect) Urine Fentanyl Screen (Not Detect) Ur Barbiturates Screen (Not Detect) Ur Phencyclidine Scrn (Not Detect) Ur Amphetamines Screen (Not Detect) U Benzodiazepines Scrn (Not Detect) Urine Cocaine Screen (Not Detect) U Marijuana (THC) Screen (Not Detect) Ethyl Alcohol mg/dL COVID-19 (RANJAN) (Negative) COVID-19 Clin Com 02/24/23 02/24/23 02/24/23 Range/Units 12:16 12:16 12:16 WBC (4.8-10.8) X10*3/uL RBC (4.60-5.80) X10*6/uL Hgb (14.0-18.0) g/dl Hct (42.0-52.0) % MCV (80.0-98.0) fL MCH (27.0-33.0) pg MCHC (31.0-36.0) g/dl RDW (11.0-16.0) % Plt Count (160-400) X10*3/uL MPV (9.4-12.4) fL Immature Gran % (Auto) (0.0-0.4) % Neut % (Auto) (45-73) % Lymph % (Auto) (20-40) % Dickens % (Auto) (2-11) % Eos % (Auto) (0-4) % Baso % (Auto) (0-2) % Lymph # (Auto) (1.2-4.9) X10*3/uL Dickens # (Auto) (0.1-1.2) X10*3/uL Eos # (Auto) (0.0-0.4) X10*3/uL Baso # (Auto) (0.0-0.2) X10*3/uL Abs Immat Gran (auto) (0.00-0.03) X10*3/uL Absolute Neuts (auto) (2.0-8.3) x10*3/uL Absolute Nucleated RBC (0.0-0.012) X10*3/uL Nucleated RBC % (auto) (0.0-0.2) /100WBC PT (10.0-13.1) SEC INR (0.9-1.1) Sodium (135-145) mmol/L Potassium (3.3-5.1) mmol/L Chloride (96-108) mmol/L Carbon Dioxide (22-29) mmol/L Anion Gap (12-20) BUN (9-16) mg/dL Creatinine (0.5-1.4) mg/dL Estim Creat Clear Calc Estimated GFR Random Glucose (60-115) mg/dL Lactic Acid 1.0 (0.5-2.0) mmol/L Calcium (8.4-10.2) mg/dL Magnesium (1.6-2.6) mg/dL Total Bilirubin (0.0-1.0) mg/dL AST (5-37) U/L ALT (0-40) U/L Alkaline Phosphatase (39-117) U/L B-Natriuretic Peptide 65 (<100) pg/mL Total Protein (6.5-8.0) g/dL Albumin (3.5-5.0) g/dL Urine Opiates Screen (Not Detect) Urine Fentanyl Screen (Not Detect) Ur Barbiturates Screen (Not Detect) Ur Phencyclidine Scrn (Not Detect) Ur Amphetamines Screen (Not Detect) U Benzodiazepines Scrn (Not Detect) Urine Cocaine Screen (Not Detect) U Marijuana (THC) Screen (Not Detect) Ethyl Alcohol mg/dL COVID-19 (RANJAN) Negative (Negative) COVID-19 Clin Com See Note 02/24/23 02/24/23 Range/Units 19:32 22:24 WBC (4.8-10.8) X10*3/uL RBC (4.60-5.80) X10*6/uL Hgb (14.0-18.0) g/dl Hct (42.0-52.0) % MCV (80.0-98.0) fL MCH (27.0-33.0) pg MCHC (31.0-36.0) g/dl RDW (11.0-16.0) % Plt Count (160-400) X10*3/uL MPV (9.4-12.4) fL Immature Gran % (Auto) (0.0-0.4) % Neut % (Auto) (45-73) % Lymph % (Auto) (20-40) % Dickens % (Auto) (2-11) % Eos % (Auto) (0-4) % Baso % (Auto) (0-2) % Lymph # (Auto) (1.2-4.9) X10*3/uL Dickens # (Auto) (0.1-1.2) X10*3/uL Eos # (Auto) (0.0-0.4) X10*3/uL Baso # (Auto) (0.0-0.2) X10*3/uL Abs Immat Gran (auto) (0.00-0.03) X10*3/uL Absolute Neuts (auto) (2.0-8.3) x10*3/uL Absolute Nucleated RBC (0.0-0.012) X10*3/uL Nucleated RBC % (auto) (0.0-0.2) /100WBC PT (10.0-13.1) SEC INR (0.9-1.1) Sodium (135-145) mmol/L Potassium (3.3-5.1) mmol/L Chloride (96-108) mmol/L Carbon Dioxide (22-29) mmol/L Anion Gap (12-20) BUN (9-16) mg/dL Creatinine (0.5-1.4) mg/dL Estim Creat Clear Calc Estimated GFR Random Glucose (60-115) mg/dL Lactic Acid (0.5-2.0) mmol/L Calcium (8.4-10.2) mg/dL Magnesium (1.6-2.6) mg/dL Total Bilirubin (0.0-1.0) mg/dL AST (5-37) U/L ALT (0-40) U/L Alkaline Phosphatase (39-117) U/L B-Natriuretic Peptide (<100) pg/mL Total Protein (6.5-8.0) g/dL Albumin (3.5-5.0) g/dL Urine Opiates Screen POSITIVE H (Not Detect) Urine Fentanyl Screen POSITIVE H (Not Detect) Ur Barbiturates Screen Not Detected (Not Detect) Ur Phencyclidine Scrn Not Detected (Not Detect) Ur Amphetamines Screen Not Detected (Not Detect) U Benzodiazepines Scrn Not Detected (Not Detect) Urine Cocaine Screen POSITIVE H (Not Detect) U Marijuana (THC) Screen Not Detected (Not Detect) Ethyl Alcohol < 10 mg/dL COVID-19 (RANJAN) (Negative) COVID-19 Clin Com <XOCHILT Sterling - Last Filed: 02/25/23 12:14> Independent Interpretation I performed an independent interpretation of an: EKG (EKG sinus tachycardia at a rate of 102. QTC 487. No STEMI. Nonischemic. ) <XOCHILT Montoya - Last Filed: 02/24/23 17:02> Radiology Impression Discussion of test interpretation with radiology: I have reviewed the radiologist's reading. <XOCHILT Montoya - Last Filed: 02/24/23 17:02> External Record Review External record reviewed: Inpatient record, Office record, Outpatient record, Prior outpatient labs, Prior outpatient radiology, Primary care record and Outside ED record <XOCHILT Montoya - Last Filed: 02/24/23 17:02> Critical Care Time Critical Care Time Critical Care Time: Yes <XOCHILT Montoya Last Filed: 02/24/23 17:02> Total Critical Care Time: 35 <XOCHILT Montoya - Last Filed: 02/24/23 17:02> Attestation: I have personally provided critical care time exclusive of time spent on separately billable procedures. Time includes review of lab data, radiology results, discussion with consultants, and monitoring for potential dec ompensation. Intervention performed as documented. <XOCHILT Montoya - Last Filed: 02/24/23 17:02> Discharge Plan Discharge Clinical Impression: Bilateral lower leg cellulitis, Active substance abuse <XOCHILT Duran - Last Filed: 02/24/23 11:56> Patient Disposition: Home, Self-Care <XOCHILT Duran - Last Filed: 02/24/23 11:56> Instructions: Cellulitis (ED), Polysubstance Abuse (ED) <XOCHILT Duran - Last Filed: 02/24/23 11:56> Additional Instructions: Take the prescribed antibiotics as prescribed for the skin infection in your legs Follow instructions of care team for detox resources Return for new or worsening symptoms Do not used heroin, it can kill you. <XOCHILT Duran - Last Filed: 02/24/23 11:56> Prescriptions: New doxycycline hyclate 100 mg tablet 100 mg PO BID Qty: 14 0RF cephalexin 500 mg capsule 500 mg PO Q6H 7 Days Qty: 28 0RF <XOCHILT Duran - Last Filed: 02/24/23 11:56>
[2023-02-24 11:45] VITALS: BP 134/86; PULSE 200; RESP 16; TEMP 37.2; O2SAT 94; BMI 41.8
--- NOTE | 2023-02-24 11:48 | ECG_ITS ---
Test Reason : tachycadia Blood Pressure : / mmHG Vent. Rate : 102 BPM Atrial Rate : 102 BPM P-R Int : 150 ms QRS Dur : 088 ms QT Int : 374 ms P-R-T Axes : 046 041 046 degrees QTc Int : 487 ms Sinus tachycardia Otherwise normal ECG No previous ECGs available Referred By: No Kim Electronically Signed By:TOMMY MORAN
[2023-02-24 12:18] VITALS: BP 128/82; PULSE 98; RESP 14; TEMP 36.8; O2SAT 95
[2023-02-24 12:30] LABS: MANUAL DIFF FLAG NO
[2023-02-24 12:36] LABS: Basophils Percent Auto 0.3 % (0-2); Eosinophils Absolute Auto 0.1 X10*3/uL (0.0-0.4); Eosinophils Percent Auto 1.2 % (0-4); Hematocrit 39.5 % (42.0-52.0); Hemoglobin 12.6 g/dl (14.0-18.0); Imm Gran Abs Auto 0.03 X10*3/uL (0.00-0.03); Imm Gran Pct Auto 0.3 % (0.0-0.4); Lymphocytes Absolute Auto 0.8 X10*3/uL (1.2-4.9); Lymphocytes Percent Auto 8.3 % (20-40); Mean Corpuscular HGB Conc 31.9 g/dl (31.0-36.0); Mean Corpuscular Hemoglobin 25.9 pg (27.0-33.0); Mean Corpuscular Volume 81.1 fL (80.0-98.0); Mean Platelet Volume 8.5 fL (9.4-12.4); Monocytes Absolute Auto 0.9 X10*3/uL (0.1-1.2); Monocytes Percent Auto 8.7 % (2-11); Neutrophils Absolute Auto 8.1 x10*3/uL (2.0-8.3); Neutrophils Percent Auto 81.2 % (45-73); Platelet Count 242 X10*3/uL (160-400); Red Blood Count 4.87 X10*6/uL (4.60-5.80); Red Cell Distribution Width 15.7 % (11.0-16.0)
[2023-02-24 12:37] LABS: Prothrombin Time 11.9 SEC (10.0-13.1)
[2023-02-24 12:44] LABS: COVID-19 Test Negative (Negative); IDNOW Serial# 08D9AD1C
[2023-02-24 12:46] LABS: Alanine Aminotransferase 26 U/L (0-40); Albumin Level 3.6 g/dL (3.5-5.0); Alkaline Phosphatase 80 U/L (39-117); Anion Gap 12 (12-20); Aspartate Amino Transferase 24 U/L (5-37); Bilirubin Total 0.6 mg/dL (0.0-1.0); Blood Urea Nitrogen 12 mg/dL (9-16); Calcium 8.4 mg/dL (8.4-10.2); Carbon Dioxide 28 mmol/L (22-29); Chloride 101 mmol/L (96-108); Creatinine Clr Calc Pharmacy 171.2; Estimated Glomerular Filt Rate > 60; Glucose Random 119 mg/dL (60-115); Magnesium 1.8 mg/dL (1.6-2.6); Potassium 3.9 mmol/L (3.3-5.1); Sodium 137 mmol/L (135-145); Total Protein 6.6 g/dL (6.5-8.0)
[2023-02-24 12:52] LABS: B Type Natriuretic Peptide 65 pg/mL (<100)
--- NOTE | 2023-02-24 14:57 | PC.NURSE ---
previous IV blew while pt in CT. IV replaced by Dr. Esposito via u/s, 18g inserted in RAC. pt tolerated well
[2023-02-24] MEDS: cefTRIAXone sodium 1 GM in 0.9 % Sodium Chloride 50 ML IV (15:19)
[2023-02-24] MEDS: iohexoL 350 MG/ML 100 ML INFUS..BTL IV (15:49)
[2023-02-24 19:35] VITALS: BP 120/83; PULSE 93; RESP 17; TEMP 36.4; O2SAT 95
--- NOTE | 2023-02-24 19:51 | MHC.RECOVSUP ---
? Reason for consult RECOVERY SUPPORT o Current location: ED 16 o Identified substance use concern: heroin - Seeking ATS (detox) - Support ? Intervention: o ATS bed search [id number] /in process o Community resources provided o Harm reduction discussion ? Plan: o Bed search in progress to ? Additional information: Patient seeking ATS... I called every where no beds.. Patient has a contact and cant come back for 30days.. Every where else said in the morning
[2023-02-24 19:53] LABS: Ethanol < 10 mg/dL
--- NOTE | 2023-02-24 22:35 | MHC.EDTECH ---
i took over this assignment, at 7p vitals were taken none has been documented since noontime, he needed a urine urine was obtained and sent
[2023-02-24 22:38] VITALS: BP 121/77; PULSE 71; RESP 18; TEMP 36.6; O2SAT 96
[2023-02-24 22:41] LABS: Amphetamine Screen Urine Not Detected (Not Detect); Barbiturates, Urine Not Detected (Not Detect); Benzodiazepines Screen Urine Not Detected (Not Detect); Cannabinoid Screen Urine Not Detected (Not Detect); Cocaine Screen Urine POSITIVE (Not Detect); Fentanyl, urine POSITIVE (Not Detect); Opiate Screen Urine POSITIVE (Not Detect); Phencyclidine Screen Urine Not Detected (Not Detect)
--- NOTE | 2023-02-25 02:06 | PC.NURSE ---
patient sleeping comfortably on stretcher throughout entirety of the night. pt is ambulatory to and from bathroom independently with steady gait. recovery team met with patient and patient is a detox bed search. will CTM
[2023-02-25 05:55] VITALS: BP 133/85; PULSE 102; RESP 18; TEMP 36.8; O2SAT 96
[2023-02-25 07:40] VITALS: BP 141/84; PULSE 92; RESP 18; O2SAT 96
[2023-02-25] MEDS: Doxycycline Monohydrate 100 MG CAPSULE PO (08:37)
[2023-02-25 08:39] VITALS: PULSE 92
--- NOTE | 2023-02-25 08:44 | PC.NURSE ---
Pt on stretcher, airway open and patent, no obvious signs of distress, no difficulty breathing. A&ox4, skin normal for ethnicity, warm, and dry. Lung sounds clr bilaterally. Heart sounds normal. Bowel sounds present all cho, abdomen soft, non-tender. Legs have bilateral edema and redness, warm to touch upper and lower legs. Pt requesting breakfast.
--- NOTE | 2023-02-25 09:16 | PC.NURSE ---
head tennis coach at bedside at this time
--- NOTE | 2023-02-25 09:35 | MHC.RECOVRN ---
Met with pt in ED16 to discuss substance use and desire for treatment. 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 Pt reports being in and out of detox x 3 months. Pt is interested in ATS, however, is only interested in facilities in which smoking is allowed. [facility] is working off of a wait list and [facility] does not have bed availability today.
--- NOTE | 2023-02-25 10:41 | PC.NURSE ---
Pt reports nausea/vomiting and diarrhea about 30 times diarrhea since yesterday, the last time was 10mins ago and vomiting about 5 times since yesterday. Provider notified.
[2023-02-25 10:48] VITALS: BP 129/73; PULSE 85; RESP 18; TEMP 36.9; O2SAT 94
[2023-02-25] MEDS: Famotidine 20 MG TABLET PO (10:54)
[2023-02-25] MEDS: Ondansetron ODT 4 MG TAB.RAPDIS TRANSLINGU (10:54)
[2023-02-25] MEDS: Loperamide HCl 2 MG CAPSULE PO (10:54)
--- NOTE | 2023-02-25 11:45 | MHC.RECOVSUP ---
T/W provided pt with resources to continue ATS bed search from home as he is only interested in a facility that will allow him to smoke and no beds are available at those facilities.
== END 2023-02-25 12:27 | disposition home or self-care (01) ==
PROVIDERS: Physician Assistant; Emergency Provider Emergency Medicine; PCP Family Medicine
DX: L03.116 Cellulitis of left lower limb (principal); L03.115 Cellulitis of right lower limb; F19.10 Other psychoactive substance abuse, uncomplicated; Z20.822 Contact with and (suspected) exposure to COVID-19; R00.0 Tachycardia, unspecified; M79.662 Pain in left lower leg; M79.661 Pain in right lower leg; R60.0 Localized edema; R21 Rash and other nonspecific skin eruption; R11.2 Nausea with vomiting, unspecified; F17.210 Nicotine dependence, cigarettes, uncomplicated; E66.9 Obesity, unspecified; Z68.41 Body mass index [BMI] 40.0-44.9, adult
CPT/HCPCS: 36410; 36415; 71045; 71275; 80053; 80307; 82077; 83605; 83735; 83880; 85025; 85610; 87040; 87147; 87205; 87635; 93005; 93970; 96365; 99285; J0696; Q9967

== ENCOUNTER 2023-03-11 08:48 | Emergency (ER) | payer OTHER, SELFPAY ==
[2023-03-11 09:32] VITALS: BP 140/87; PULSE 97; RESP 18; TEMP 36.6; O2SAT 98; BMI 43.9
[2023-03-11 10:17] LABS: MANUAL DIFF FLAG NO
[2023-03-11 10:19] LABS: Basophils Percent Auto 0.3 % (0-2); Eosinophils Percent Auto 0.2 % (0-4); Hematocrit 45.4 % (42.0-52.0); Hemoglobin 14.5 g/dl (14.0-18.0); Imm Gran Abs Auto 0.04 X10*3/uL (0.00-0.03); Imm Gran Pct Auto 0.3 % (0.0-0.4); Lymphocytes Percent Auto 16.2 % (20-40); Mean Corpuscular HGB Conc 31.9 g/dl (31.0-36.0); Mean Corpuscular Hemoglobin 25.9 pg (27.0-33.0); Mean Corpuscular Volume 81.1 fL (80.0-98.0); Mean Platelet Volume 8.7 fL (9.4-12.4); Monocytes Absolute Auto 1.1 X10*3/uL (0.1-1.2); Monocytes Percent Auto 8.5 % (2-11); Neutrophils Absolute Auto 9.2 x10*3/uL (2.0-8.3); Neutrophils Percent Auto 74.5 % (45-73); Platelet Count 409 X10*3/uL (160-400); Red Cell Distribution Width 15.6 % (11.0-16.0); White Blood Count 12.3 X10*3/uL (4.8-10.8)
[2023-03-11 10:23] LABS: Appearance Urine Cloudy; Color Urine Yellow; Glucose Urine UA Negative (Negative); Leukocyte Esterase Urine Negative (Negative); Nitrite Urine Negative (Negative); PH 5.5 (5.0-9.0); Specific Gravity - Urine 1.025 (1.005-1.025); Urine Blood Negative (Negative); Urine Ketones Negative (Negative); Urine Protein Negative (Neg-Trace)
[2023-03-11 10:32] LABS: Anion Gap 13 (12-20); Blood Urea Nitrogen 19 mg/dL (9-16); Calcium 9.4 mg/dL (8.4-10.2); Carbon Dioxide 26 mmol/L (22-29); Chloride 101 mmol/L (96-108); Creatinine Clr Calc Pharmacy 172.2; Estimated Glomerular Filt Rate > 60; Glucose Random 113 mg/dL (60-115); Potassium 4.4 mmol/L (3.3-5.1); Sodium 136 mmol/L (135-145)
[2023-03-11 11:25] VITALS: BP 138/66; PULSE 90; RESP 18; O2SAT 94
--- NOTE | 2023-03-11 11:58 | ED.GENADULT ---
HPI - General Adult General Chief complaint: General Medical Stated complaint: trouble urinating Time Seen by Provider: 03/11/23 11:24 Source: patient and RN notes reviewed Mode of arrival: ambulatory Limitations: no limitations History of Present Illness HPI narrative: This is a 38 [id number], with a past medical history of polysubstance abuse, who presents to the emergency department with complaints of urinary frequency and difficulty voiding x 3-4 days. Patient reports that he was recently discharged from detox several days ago for IV drug use. During his detox treatment, he was placed on methadone 30mg, and tapered off. He states that over the last several days he at times feel as though he has to strain to get the urine out. He states that he also has felt some urinary frequency. Denies hematuria, dysuria, fever, chills, penile discharge,lesions or rashes. He states some nausea and some diffuse body aches but attributes this to opioid withdrawal. He has not used in over 10 days. He is sexually active, and has no concerns for STIs. No other complaints or concerns at this time. MD complaint: Urinary frequency, ?urine retention. Onset (ago): day(s) Radiation: non-radiation Relieving factors: none Exacerbating factors: none Associated symptoms: denies other symptoms Treatments prior to arrival: none Related Data Previous Rx's Medication Instructions Recorded doxycycline hyclate 100 mg tablet 100 mg PO BID #14 tabs 02/24/23 cephalexin 500 mg capsule 500 mg PO Q6H 7 days #28 caps 02/25/23 Allergies Allergy/AdvReac Type Severity Reaction Status Date / Time No Known Allergies Allergy Verified 03/11/23 09:32 Review of Systems Review of Systems: Constitutional: No Weight loss, No Fever, No Chills, No Night Sweats, No Fatigue, No Malaise ENT/Mouth: No Hearing loss, No Ear Pain, No Nasal Congestion, No Sinus Pain, No Hoarseness, No sore throat, No Rhinorrhea, No Swallowing Difficulty Eyes: No Eye Pain, No Swelling, No Redness, No Foreign Body, No Discharge, No Vision Changes Cardiovascular: No Chest Pain, No SOB, No Dyspnea on Exertion, No Orthopnea, No Edema, No Palpitations Respiratory: No Cough, No Sputum, No Wheezing, No Smoke Exposure, No Dyspnea Gastrointestinal: +Nausea, No Vomiting, No Diarrhea, No Constipation, No Abdominal pain, No Hematochezia, No Melena Genitourinary: No irregular bleeding, No Dysuria, + Urinary Frequency, No Hematuria, + Urinary Incontinence/retention, No Urgency, No Flank Pain, No Urinary Flow Changes, No Hesitancy Musculoskeletal: No joint pain, No Myalgias, No Joint Swelling Skin: No Skin Lesions, No rash Neuro: No Weakness, No Numbness, No Paresthesias, No Loss of Consciousness, No Dizziness, No Headache Psych: No Anxiety/Panic, No Depression, No SI/HI/AH/VH, No Social Issues, Heme/Lymph: No Bruising, No Bleeding,No Lymphadenopathy Endocrine: No Polyuria, No Polydipsia, No Temperature Intolerance Yes all other systems are reviewed and are negative Constitutional: Constitutional: Reports as per [facility] Social History Social History Alcohol intake: never Smoked in Last 30 Days: Yes Use of substances other than those prescribed or required for medical reasons: No Substance Use Type: Heroin Substance Use Frequency Other:: Patient used to use but recent went through rehab Advance Directives: No Advance Directives Information Provided: No Physical Exam ED Vital Signs: Vital Signs - 24 hr 03/11/23 09:32 03/11/23 11:25 Temperature 98 F Pulse Rate 97 90 Respiratory Rate 18 18 Blood Pressure 140/87 H 138/66 Pulse Oximetry 98 94 Oxygen Delivery Method Room Air BMI result Body Mass Index 43.9 Const General: cooperative, comfortable and no acute distress Orientation/consciousness: patient oriented x3 Limitations: no limitations [facility] Head: Yes normal to inspection, Yes normocephalic and Yes atraumatic Ears: hearing grossly normal bilaterally General nose exam: Normal external nose present Face and sinus: Yes normal facial exam Mouth: Normal oral and palatal mucosa present, oropharynx normal and moist mucous membranes Throat: Yes posterior oropharynx normal Eyes General: appearance normal, both eyes and all related structures Eyelids: Yes eyelids normal Conjunctivae: conjunctivae normal Sclerae: sclerae normal Pupils: Equal, round and reactive pupils present EOM: EOMs intact bilaterally Neck Neck: Yes normal visual inspection, Yes full ROM and Yes no lymphadenopathy Lymphatic: no lymphadenopathy noted Chest Chest palpation & inspection: normal inspection of the chest Resp Effort & Inspection: normal respiratory effort and able to speak in complete sentences Auscultation: clear to auscultation bilaterally, no crackles, no rales, no rhonchi and no wheezes Cardio Rate: regular rate Rhythm: regular rhythm Heart sounds: S1 normal heart sound present and S2 normal heart sound present GI Other: mild TTP in epigastrium, no rebound or guarding. Inspection: Yes normal to inspection Palpation (GI): Soft to palpation, no guarding and not rigid General: Yes no CVA tenderness Back/Spine/Pelvis Other: No masses, erythema, step off, TTP throughout the entire back. Back: no CVA tenderness, No mass, No erythema and No warmth Skin General skin exam: no rashes or lesions noted Trauma: no lacerations or abrasions Wounds: no wounds Neuro General: patient oriented x3 and moves all extremities Cranial nerves: Yes Equal, round and reactive pupils present Extrem General: Yes normal to inspection Right upper extremity: normal to inspection Left upper extremity: normal to inspection Right lower extremity: normal to inspection Left lower extremity: normal to inspection Course Reevaluation(s) Reevaluation #1: UA is unremarkable. Pt denies any concerns for STIs. Will obtain dirty urine. Bladder scan pending. Time: 12:12 Reevaluation #2: Bladder scan 225ml, last urination 1 hour ago. I do not suspect urinary retention at this time. Discussed at length that patient's symptoms are likely due to opioid induced urinary retention. GC/chlamydia urine sent to the lab for testing. UA is negative, VSS, pt has no back pain, several abdominal pain, able to tolerate PO, and he is requesting to be discharged as he has court in 1 hour. Discussed red flag symptoms of when to return, patient understands and agrees with plan. Time: 12:30 Medical Decision Making Medical Decision Making MDM Narrative: 38 y/o M, hx of IVDA, who presents to the ER for difficulty voiding and urinary frequency x 3-4 days. On examination, pt is nontoxic appearing, afebrile, and vital signs are WNL. Pt has no back pain, no numbness or tingling. Pts symptoms likely due to methadone/opioid induced side effect. UA negative for UTI. Urine sent for GC/chlamydia. Pt declines wanting to be treated for STIs at this time. No clinical signs of epidural abscess. VSS. Plan: UA and bladder scan ordered. Differential Diagnosis Differential Diagnoses: The differential diagnosis associated with the presentation includes UTI, STI, urinary retention, nephrolithiasis, epidural abscess. Admission/Observation Consideration of admission/observation: Escalation of care including admission/observation considered Lab Data MDM Lab Attestation statement: I reviewed the patient's lab results. 03/11/23 10:13 03/11/23 10:13 Labs: Lab Results 03/11/23 03/11/23 03/11/23 Range/Units 10:13 10:13 10:13 WBC 12.3 H (4.8-10.8) X10*3/uL RBC 5.60 (4.60-5.80) X10*6/uL Hgb 14.5 (14.0-18.0) g/dl Hct 45.4 (42.0-52.0) % MCV 81.1 (80.0-98.0) fL MCH 25.9 L (27.0-33.0) pg MCHC 31.9 (31.0-36.0) g/dl RDW 15.6 (11.0-16.0) % Plt Count 409 H D (160-400) X10*3/uL MPV 8.7 L (9.4-12.4) fL Immature Gran % (Auto) 0.3 (0.0-0.4) % Neut % (Auto) 74.5 H (45-73) % Lymph % (Auto) 16.2 L (20-40) % [place] % (Auto) 8.5 (2-11) % Eos % (Auto) 0.2 (0-4) % Baso % (Auto) 0.3 (0-2) % Lymph # (Auto) 2.0 (1.2-4.9) X10*3/uL [place] # (Auto) 1.1 (0.1-1.2) X10*3/uL Eos # (Auto) 0.0 (0.0-0.4) X10*3/uL Baso # (Auto) 0.0 (0.0-0.2) X10*3/uL Abs Immat Gran (auto) 0.04 H (0.00-0.03) X10*3/uL Absolute Neuts (auto) 9.2 H (2.0-8.3) x10*3/uL Absolute Nucleated RBC 0.000 (0.0-0.012) X10*3/uL Nucleated RBC % (auto) 0.0 (0.0-0.2) /100WBC Sodium 136 (135-145) mmol/L Potassium 4.4 (3.3-5.1) mmol/L Chloride 101 (96-108) mmol/L Carbon Dioxide 26 (22-29) mmol/L Anion Gap 13 (12-20) BUN 19 H (9-16) mg/dL Creatinine 0.85 (0.5-1.4) mg/dL Estim Creat Clear Calc 172.2 Estimated GFR > 60 Random Glucose 113 (60-115) mg/dL Calcium 9.4 D (8.4-10.2) mg/dL Urine Color Yellow Urine Appearance Cloudy Urine pH 5.5 (5.0-9.0) Ur Specific [place] 1.025 (1.005-1.025) Urine Protein Negative (Neg-Trace) mg/dL Urine Glucose (UA) Negative (Negative) mg/dL Urine Ketones Negative (Negative) mg/dL Urine Blood Negative (Negative) Urine Nitrite Negative (Negative) Ur Leukocyte Esterase Negative (Negative) Urine Opiates Screen (Not Detect) Urine Fentanyl Screen (Not Detect) Ur Barbiturates Screen (Not Detect) Ur Phencyclidine Scrn (Not Detect) Ur Amphetamines Screen (Not Detect) U Benzodiazepines Scrn (Not Detect) Urine Cocaine Screen (Not Detect) U Marijuana (THC) Screen (Not Detect) Chlam trachomat DNA PCR (Not Detect.) N.gonorrhoeae DNA (PCR) (Not Detect.) 03/11/23 03/11/23 Range/Units 10:13 12:24 WBC (4.8-10.8) X10*3/uL RBC (4.60-5.80) X10*6/uL Hgb (14.0-18.0) g/dl Hct (42.0-52.0) % MCV (80.0-98.0) fL MCH (27.0-33.0) pg MCHC (31.0-36.0) g/dl RDW (11.0-16.0) % Plt Count (160-400) X10*3/uL MPV (9.4-12.4) fL Immature Gran % (Auto) (0.0-0.4) % Neut % (Auto) (45-73) % Lymph % (Auto) (20-40) % [place] % (Auto) (2-11) % Eos % (Auto) (0-4) % Baso % (Auto) (0-2) % Lymph # (Auto) (1.2-4.9) X10*3/uL [place] # (Auto) (0.1-1.2) X10*3/uL Eos # (Auto) (0.0-0.4) X10*3/uL Baso # (Auto) (0.0-0.2) X10*3/uL Abs Immat Gran (auto) (0.00-0.03) X10*3/uL Absolute Neuts (auto) (2.0-8.3) x10*3/uL Absolute Nucleated RBC (0.0-0.012) X10*3/uL Nucleated RBC % (auto) (0.0-0.2) /100WBC Sodium (135-145) mmol/L Potassium (3.3-5.1) mmol/L Chloride (96-108) mmol/L Carbon Dioxide (22-29) mmol/L Anion Gap (12-20) BUN (9-16) mg/dL Creatinine (0.5-1.4) mg/dL Estim Creat Clear Calc Estimated GFR Random Glucose (60-115) mg/dL Calcium (8.4-10.2) mg/dL Urine Color Urine Appearance Urine pH (5.0-9.0) Ur Specific [place] (1.005-1.025) Urine Protein (Neg-Trace) mg/dL Urine Glucose (UA) (Negative) mg/dL Urine Ketones (Negative) mg/dL Urine Blood (Negative) Urine Nitrite (Negative) Ur Leukocyte Esterase (Negative) Urine Opiates Screen Not Detected (Not Detect) Urine Fentanyl Screen POSITIVE H (Not Detect) Ur Barbiturates Screen Not Detected (Not Detect) Ur Phencyclidine Scrn Not Detected (Not Detect) Ur Amphetamines Screen Not Detected (Not Detect) U Benzodiazepines Scrn Not Detected (Not Detect) Urine Cocaine Screen Not Detected (Not Detect) U Marijuana (THC) Screen Not Detected (Not Detect) Chlam trachomat DNA PCR NOT DETECTED (Not Detect.) N.gonorrhoeae DNA (PCR) NOT DETECTED (Not Detect.) Discharge Plan Discharge Clinical Impression: Urinary frequency, Drug side effects Patient Disposition: Home, Self-Care Instructions: Polyuria (ED) Additional Instructions: Your urine today was normal today. Your urinary symptoms are likely due to methadone. Please continue to stay well hydrated. We are sending your urine out for gonorrhea and chlamydia as this can also cause your symptoms. You declined treatment today for this. If you develop any new or worsening symptoms (fevers, chills, abdominal pain, vomiting, blood in urine, pain with urination, inability to urinate) please return for re-evaluation. Follow up with your primary care physician. Prescriptions: No Action doxycycline hyclate 100 mg tablet 100 mg PO BID Qty: 14 0RF cephalexin 500 mg capsule 500 mg PO Q6H 7 Days Qty: 28 0RF Interventions: ED Discharge Assessment Last Done: 03/11/23 12:27 Discharge Date/Time: 03/11/23 12:28
[2023-03-11 12:20] LABS: Amphetamine Screen Urine Not Detected (Not Detect); Barbiturates, Urine Not Detected (Not Detect); Benzodiazepines Screen Urine Not Detected (Not Detect); Cannabinoid Screen Urine Not Detected (Not Detect); Cocaine Screen Urine Not Detected (Not Detect); Fentanyl, urine POSITIVE (Not Detect); Opiate Screen Urine Not Detected (Not Detect); Phencyclidine Screen Urine Not Detected (Not Detect)
[2023-03-11 14:13] LABS: CT PCR NOT DETECTED (Not Detect.); NG PCR NOT DETECTED (Not Detect.)
== END 2023-03-11 12:28 | disposition home or self-care (01) ==
PROVIDERS: Physician Assistant Medical; Emergency Provider Student in an Organized Health Care Education/Training Program
DX: R35.0 Frequency of micturition (principal); R33.0 Drug induced retention of urine; T40.3X5A Adverse effect of methadone, initial encounter; Y92.9 Unspecified place or not applicable; R10.13 Epigastric pain; M79.10 Myalgia, unspecified site; R11.0 Nausea; F19.10 Other psychoactive substance abuse, uncomplicated; F11.20 Opioid dependence, uncomplicated
CPT/HCPCS: 0353U; 36415; 51798; 80048; 80307; 81003; 85025; 99283; 99284

== ENCOUNTER 2023-03-15 05:30 | Emergency (ER) | payer OTHER, SELFPAY ==
--- NOTE | ~2023-03-15 | XR_ITS ---
EXAMINATION: XR ANKLE, RIGHT CLINICAL INFORMATION: Right ankle pain, injury, fall COMPARISON: None available. TECHNIQUE: AP, lateral, and mortise views of the right ankle. FINDINGS: Osseous alignment is anatomic. No definite acute fracture is seen. There is a small chronic appearing osseous density distal to the lateral malleolus. There is significant soft tissue swelling about the ankle. Plantar calcaneal spur is noted. XR/XR ankle RT 2V IMPRESSION: Significant soft tissue swelling. Small osseous density distal to the lateral malleolus is more suggestive of a chronic finding.
[2023-03-15 05:44] VITALS: BP 110/80; BP 111/72; PULSE 89; PULSE 94; RESP 18; TEMP 36.6; O2SAT 96; O2SAT 98; BMI 43.2
--- NOTE | 2023-03-15 07:26 | ED_ITS ---
HPI - Extremity Injury (Lower) General Chief Complaint: Extremity Injury, Lower Stated Complaint: ankle pain Time Seen by Provider: 03/15/23 07:18 Source: patient Limitations: no limitations History of Present Illness HPI Narrative: This is a 38 years old man presented to emergency department complaining of right ankle pain he states that twisted the right ankle in street curb yesterday. Denies any other injury denies any neck pain head injury MD complaint: ankle injury Onset (ago): day(s) (1) Injury: Right: knee Type of Injury: eversion Place: street/outdoors Severity: moderate Relieving factors: nothing Exacerbating factors: weight bearing Other symptoms: none Related Data Previous Rx's Medication Instructions Recorded doxycycline hyclate 100 mg tablet 100 mg PO BID #14 tabs 02/24/23 cephalexin 500 mg capsule 500 mg PO Q6H 7 days #28 caps 02/25/23 Allergies Allergy/AdvReac Type Severity Reaction Status Date / Time No Known Allergies Allergy Verified 03/11/23 09:32 Review of Systems ENT: Reports system reviewed and no additional complaints, except as documented Cardiovascular: Cardiovascular: Reports no additional cardiovascular complaints Musculoskeletal: Musculoskeletal: Reports other (Right ankle pain) Neurologic: Reports system reviewed and no additional complaints, except as documented PMFSH Past Medical History PMFSH Narrative: Polysubstance abuse Social History Social History Alcohol intake: never Substance Use Type: Heroin Advance Directives: No Advance Directives Information Provided: No Physical Exam Vital Signs: Vital Signs: Last Vital Signs Temp 97.8 F 03/15/23 05:44 Pulse 94 03/15/23 05:44 Resp 18 03/15/23 05:44 BP 111/72 03/15/23 05:44 Pulse Ox 98 03/15/23 05:44 O2 Del Method Room Air 03/15/23 05:44 BMI result Body Mass Index 43.2 Const: General: cooperative Nutritional Appearance: well nourished Orientation/consciousness: patient oriented x3 Limitations: no limitations HEENT: Face and sinus: Yes normal facial exam Mouth: Normal oral and palatal mucosa present Neck: Neck: Yes normal visual inspection Chest: Chest palpation & inspection: normal inspection of the chest Resp: Effort & Inspection: normal respiratory effort and able to speak in complete sentences Auscultation: clear to auscultation bilaterally Cardio: Jugular venous distension: no JVD Rate: regular rate Rhythm: regular rhythm GI: Inspection: Yes normal to inspection Palpation (GI): Soft to palpation, not firm, nontender and no guarding Auscultation: normal bowel sounds Skin: General skin exam: no rashes or lesions noted and elasticity normal Neuro: General: patient oriented x3 Extrem: Other: Examination the right ankle shows swelling ,no deformity ,pulses are present, skin is intact Course Reevaluation(s) Reevaluation #1: Patient presented with right ankle sprain will place splint will give him crutches Time: 07:31 Medications Administered Discontinued Medications Generic Name Dose Route Start Last Admin Trade Name Freq PRN Reason Stop Dose Admin Naproxen 500 mg 03/15/23 07:25 03/15/23 07:47 Naproxen 500 Mg Tablet PO 03/15/23 07:26 500 mg ONCE ONE Administration Medical Decision Making Medical Decision Making [facility] Narrative: Patient presents to the emergency room complaining of right ankle sprain x-ray was negative for fracture will place splint discharge Differential Diagnosis Differential Diagnoses: The differential diagnosis associated with the presentation includes Sprain/fracture Independent Interpretation I performed an independent interpretation of an: Plain X-Ray Interpretation: Xray interpreted by me no Fx Radiology Impression Discussion of test interpretation with radiology: I have reviewed the radiologist's reading. Radiologist Impression: COMPARISON: None available.? TECHNIQUE: AP, lateral, and mortise views of the right ankle. FINDINGS: Osseous alignment is anatomic. No definite acute fracture is seen. There is a small chronic appearing osseous density distal to the lateral malleolus. There is significant soft tissue swelling about the ankle. Plantar calcaneal spur is noted.? XR/XR ankle RT 2V IMPRESSION: Significant soft tissue swelling. Small osseous density distal to the lateral malleolus is more suggestive of a chronic finding. ? Dictated By: Jackson Langston MD Signed By: <Electronically signed by Jackson Langston MD in OV> 03/15/2339 DD/ 06 TD/TT:? Laboratory Monitor: TH Chronic Conditions Substance abuse Social Determinants Patient?s care significantly limited by Social Determinants of Health including: Inadequate housing and Alcoholism and drug addiction in family Procedures Orthopedic Splinting/Casting Injury #1: Side: right Lower Extremity Injury Location: ankle Lower Extremity Immobilizer: stirrup splint Other Orthopedic Equipment: crutches (OCL splint applied by ER levar under my supervision,I check circulation at the end good) Discharge Plan Discharge Clinical Impression: Ankle sprain and strain Patient Disposition: Home, Self-Care Additional Instructions: Keep you splint on, keep elevated the foot as much as you can, anti-inflammatory such as Motrin every 8 hours Prescriptions: No Action doxycycline hyclate 100 mg tablet 100 mg PO BID Qty: 14 0RF cephalexin 500 mg capsule 500 mg PO Q6H 7 Days Qty: 28 0RF Referrals: Matthew Bishop MD [Physician] - 3 days
[2023-03-15] MEDS: NaPROXEN 500 MG TABLET PO (07:47)
--- NOTE | 2023-03-15 07:54 | PC.NURSE ---
splint placed by pct and checked by dr flores, + [facility], pt homeless, walker provided, now eating sandwich and soda
== END 2023-03-15 08:45 | disposition home or self-care (01) ==
PROVIDERS: Emergency Provider Emergency Medicine
DX: S93.401A Sprain of unspecified ligament of right ankle, initial encounter (principal); X50.1XXA Overexertion from prolonged static or awkward postures, initial encounter; Y93.9 Activity, unspecified; Y92.480 Sidewalk as the place of occurrence of the external cause; Y99.9 Unspecified external cause status
CPT/HCPCS: 29515; 73600; 99283

== ENCOUNTER 2023-04-11 18:58 | Inpatient (IN) | payer MEDICAID, SELFPAY ==
--- NOTE | ~2023-04-11 | XR_ITS ---
EXAMINATION: XR CHEST CLINICAL INFORMATION: Lower leg swelling, infection, shortness of breath. COMPARISON: 02/24/2023 TECHNIQUE: Frontal view of the chest was obtained. FINDINGS: Lungs are well-inflated and clear. Trachea is midline in position. No interstitial disease, consolidation or mass. No pleural effusion or pneumothorax. Cardiac silhouette and pulmonary vessels are normal in size. The mediastinum and dolores have normal contour. The visualized bones, and upper abdomen, are unremarkable. XR/XR chest 1V IMPRESSION: No acute cardiopulmonary abnormality.
--- NOTE | ~2023-04-11 | XR_ITS ---
EXAMINATION: XR TIBIA AND FIBULA, LEFT CLINICAL INFORMATION: Low suspicion osteomyelitis proximal tibia COMPARISON: None available. TECHNIQUE: AP and lateral views of the left tibia and fibula were obtained. FINDINGS: Diffuse soft tissue swelling is seen about the calf. Underlying bony structures are grossly unremarkable. I do not appreciate any acute fracture or dislocation. No bony destructive lesions or periosteal reaction appreciated XR/XR tibia fibula LT 2V IMPRESSION: Diffuse soft tissue swelling about the calf. No acute bony abnormality.
--- NOTE | ~2023-04-11 | MR_ITS ---
EXAMINATION: MR LOWER LEG LEFT WITHOUT CONTRAST CLINICAL INFORMATION: 38-year-old male with left leg cellulitis, not much improvement. Evaluate for abscess or osteomyelitis. COMPARISON: Radiographs of left lower extremity from 04/11/2023. TECHNIQUE: Noncontrast MR imaging examination of the left lower extremity is performed. After acquisition of localizer sequences, coronal and axial T1-weighted, coronal STIR, sagittal STIR and axial fat-suppressed T2-weighted images were acquired. FINDINGS: Diffuse edema of subcutaneous tissues of the lower extremity is seen from the region of the examined knee to the ankle. Within the pretibial region of the upper third of the leg, there is a more focal area of fluid like signal change in the subcutaneous tissue compartment; this measures approximately 1.1 x 1.7 x 5.5 cm. Although this is a noncontrast examination, this is suspicious for soft tissue abscess, and it appears to track to the skin surface (images 16-20, series 6). The underlying tibial cortex is intact. No tibial erosion or periostitis.. The bone marrow signal of the tibia and fibula is normal on the T1-weighted and STIR images. The muscles have normal signal intensity. No evidence of myositis, mass or hematoma. The visualized tendons are intact. At the level of the ankle, trace amount of fluid is seen within the posterior tibialis tendon sheath; no overt tenosynovitis. MR/MR lower leg LT wo con IMPRESSION: * The diffuse edema of the subcutaneous tissues tissues is consistent with cellulitis. * A more focal area of fluid like signal change is present within the pretibial region of the anterior third of the leg and this is likely a soft tissue abscess. * No evidence of osteomyelitis.
[2023-04-11 19:09] VITALS: BP 123/61; BP 132/74; PULSE 102; PULSE 111; RESP 18; TEMP 39.6; O2SAT 95; O2SAT 96; BMI 41.8
--- NOTE | 2023-04-11 19:44 | ED.LOWEXIN ---
HPI - Extremity Injury (Lower) General Chief Complaint: Extremity Injury, Lower Stated Complaint: LEG PAIN PER EMS Time Seen by Provider: 04/11/23 19:24 Source: patient Mode of arrival: EMS Limitations: no limitations History of Present Illness HPI Narrative: Patient comes to the emergency room complaining of pain in the left lower extremity. Patient states that 3 weeks ago, patient had a fall, patient was seen here for right ankle sprain which is healing well. At the same time that he fell, patient sustain an injury to the left baker anteriorly. Patient states that he is not sure if it is related, but 2 days ago he started noticing erythema on the anterior aspect of the left lower extremity, the redness has been spreading over last couple of days, now patient has fever and chills. Patient denies IV drug use but does admit that he snorts heroin and cocaine. Related Data Previous Rx's Medication Instructions Recorded doxycycline hyclate 100 mg tablet 100 mg PO BID #14 tabs 02/24/23 cephalexin 500 mg capsule 500 mg PO Q6H 7 days #28 caps 02/25/23 Allergies Allergy/AdvReac Type Severity Reaction Status Date / Time No Known Allergies Allergy Verified 03/11/23 09:32 Review of Systems Review of Systems: Constitutional : No Weight loss, No Fever, No Chills, No Night Sweats, No Fatigue, No Malaise ENT/Mouth : No Hearing loss, No Ear Pain, No Nasal Congestion, No Sinus Pain, No Hoarseness, No sore throat, No Rhinorrhea, No Swallowing Difficulty Eyes: No Eye Pain, No Swelling, No Redness, No Foreign Body, No Discharge, No Vision Changes Cardiovascular : No Chest Pain, No SOB, No Dyspnea on Exertion, No Orthopnea, No Edema, No Palpitations Respiratory : No Cough, No Sputum, No Wheezing, No Smoke Exposure, No Dyspnea Gastrointestinal : No Nausea, No Vomiting, No Diarrhea, No Constipation, No abdominal Pain, No Hematochezia, No Melena Genitourinary : no irregular bleeding, No Dysuria, No Urinary Frequency, No Hematuria, No Urinary Incontinence, No Urgency, No Flank Pain, No Urinary Flow Changes, No Hesitancy Musculoskeletal : No joint pain, No Myalgias, No Joint Swelling Skin : Open lesion over the left tibial aspect below the knee, erythema and left lower extremity Neuro : No Weakness, No Numbness, No Paresthesias, No Loss of Consciousness, No Dizziness, No Headache Psych : No Anxiety/Panic, No Depression, No SI/HI/AH/VH, No Social Issues, Heme/Lymph: No Bruising, No Bleeding,No Lymphadenopathy Endocrine : No Polyuria, No Polydipsia, No Temperature Intolerance [facility] Past Medical History Medical History (Updated 04/11/23 @ 19:54 by Cecelia Chahal MD) Polysubstance abuse Social History Social History Alcohol intake: never Smoked in Last 30 Days: Yes Use of substances other than those prescribed or required for medical reasons: No Substance Use Type: Crack/Cocaine and Heroin Advance Directives: No Advance Directives Information Provided: No Physical Exam Vital Signs: Vital Signs: Last Vital Signs Temp 103.2 F H 04/11/23 19:09 Pulse 97 04/11/23 20:00 Resp 19 04/11/23 20:00 BP 123/61 04/11/23 19:09 Pulse Ox 91 L 04/11/23 20:00 O2 Del Method Room Air 04/11/23 20:00 BMI result Body Mass Index 41.8 Const: Other: Appearance: Alert. Oriented X3. No acute distress. Eyes: Pupils equal, round and reactive to light. ENT: Pharynx normal. Neck: Normal inspection. Neck supple. No lymph nodes noted. No crepitus CVS: Normal heart rate and rhythm. Pulses normal. Normal S1 and S2 Respiratory: No respiratory distress. Breath sounds normal. No Wheezing. No rales Abdomen: Soft and nontender. No rigidity. No distention. Skin: Erythema on the left lower extremity, open injury approximately above the tibial tubercle Extremities: No lower extremity edema. See skin above Neuro: Oriented X 3. No motor deficit. No sensory deficit. Moving all extremities. No slurred speech. CN 2 through 12 grossly intact Psych: calm, cooperative, normal affect Course Course Course Narrative: -we will obtain imaging and labs -I am considering admitting the patient, unlikely that patient will benefit from p.o. antibiotics Medications Administered Generic Name Dose Route Start Last Admin Trade Name Freq PRN Reason Stop Dose Admin Sodium Chloride 2,500 mls @ 999 mls/hr 04/11/23 19:35 04/11/23 20:26 Ns IVCONT 04/11/23 22:05 999 mls/hr .[id number] ONE Administration Vancomycin HCl 2,000 mg in 500 mls @ 250 mls/hr 04/11/23 19:35 04/11/23 20:44 Vancomycin/Ns IV 04/11/23 21:34 250 mls/hr ONCE ONE Administration Discontinued Medications Generic Name Dose Route Start Last Admin Trade Name Freq PRN Reason Stop Dose Admin Piperacillin Sod/Tazobactam 50 mls @ 100 mls/hr 04/11/23 19:35 04/11/23 21:04 Sod 3.375 gm/ Sodium Chloride IV 04/11/23 20:04 Infused ONCE ONE Infusion Medical Decision Making Medical Decision Making [facility] Narrative: -patient is receiving IV fluids based on ideal body weight of 73 kg, patient is obese. Patient also receiving IV antibiotics, Zosyn and vancomycin. -all of patient's labs and imaging are pending -patient has significant cellulitis in the left lower extremity, possible osteomyelitis? Admission has been considered and discussed with our hospitalist. Patient to be admitted once all the labs and imaging results are available -patient's white blood cell count 21.5, lactic 1.4, CRP 25.9, ESR 44 -my interpretation of x-ray of tibia-fibula: No bony involvement Admission/Observation Consideration of admission/observation: Escalation of care including admission/observation considered Consult Healthcare Provider Management of the patient was discussed with: Hospitalist Lab Data [facility] Lab Attestation statement: I reviewed the patient's lab results. 04/11/23 20:12 04/11/23 20:12 Labs: Lab Results 04/11/23 04/11/23 04/11/23 Range/Units 20:12 20:12 20:12 WBC 21.5 H (4.8-10.8) X10*3/uL RBC 5.42 (4.60-5.80) X10*6/uL Hgb 14.2 (14.0-18.0) g/dl Hct 44.6 (42.0-52.0) % MCV 82.3 (80.0-98.0) fL MCH 26.2 L (27.0-33.0) pg MCHC 31.8 (31.0-36.0) g/dl RDW 14.3 (11.0-16.0) % Plt Count 259 D (160-400) X10*3/uL MPV 9.6 (9.4-12.4) fL Immature Gran % (Auto) 0.7 H (0.0-0.4) % Neut % (Auto) 88.3 H (45-73) % Lymph % (Auto) 4.0 L (20-40) % [place] % (Auto) 6.7 (2-11) % Eos % (Auto) 0.0 (0-4) % Baso % (Auto) 0.3 (0-2) % Lymph # (Auto) 0.9 L (1.2-4.9) X10*3/uL [place] # (Auto) 1.4 H (0.1-1.2) X10*3/uL Eos # (Auto) 0.0 (0.0-0.4) X10*3/uL Baso # (Auto) 0.1 (0.0-0.2) X10*3/uL Abs Immat Gran (auto) 0.16 H (0.00-0.03) X10*3/uL Absolute Neuts (auto) 18.9 H (2.0-8.3) x10*3/uL Absolute Nucleated RBC 0.000 (0.0-0.012) X10*3/uL Nucleated RBC % (auto) 0.0 (0.0-0.2) /100WBC ESR 44 H (0-15) MM/HR Sodium 134 L (135-145) mmol/L Potassium 4.0 (3.3-5.1) mmol/L Chloride 99 (96-108) mmol/L Carbon Dioxide 23 (22-29) mmol/L Anion Gap 16 (12-20) BUN 13 (9-16) mg/dL Creatinine 0.84 (0.5-1.4) mg/dL Estim Creat Clear Calc 169.6 Estimated GFR > 60 Random Glucose 114 (60-115) mg/dL Lactic Acid (0.5-2.0) mmol/L Calcium 9.2 (8.4-10.2) mg/dL Total Bilirubin 0.6 (0.0-1.0) mg/dL AST 14 (5-37) U/L ALT 9 (0-40) U/L Alkaline Phosphatase 82 (39-117) U/L C-Reactive Protein 25.95 H (< or = 0.50) mg/dL Total Protein 7.9 (6.5-8.0) g/dL Albumin 4.1 (3.5-5.0) g/dL 04/11/23 Range/Units 20:12 WBC (4.8-10.8) X10*3/uL RBC (4.60-5.80) X10*6/uL Hgb (14.0-18.0) g/dl Hct (42.0-52.0) % MCV (80.0-98.0) fL MCH (27.0-33.0) pg MCHC (31.0-36.0) g/dl RDW (11.0-16.0) % Plt Count (160-400) X10*3/uL MPV (9.4-12.4) fL Immature Gran % (Auto) (0.0-0.4) % Neut % (Auto) (45-73) % Lymph % (Auto) (20-40) % [place] % (Auto) (2-11) % Eos % (Auto) (0-4) % Baso % (Auto) (0-2) % Lymph # (Auto) (1.2-4.9) X10*3/uL [place] # (Auto) (0.1-1.2) X10*3/uL Eos # (Auto) (0.0-0.4) X10*3/uL Baso # (Auto) (0.0-0.2) X10*3/uL Abs Immat Gran (auto) (0.00-0.03) X10*3/uL Absolute Neuts (auto) (2.0-8.3) x10*3/uL Absolute Nucleated RBC (0.0-0.012) X10*3/uL Nucleated RBC % (auto) (0.0-0.2) /100WBC ESR (0-15) MM/HR Sodium (135-145) mmol/L Potassium (3.3-5.1) mmol/L Chloride (96-108) mmol/L Carbon Dioxide (22-29) mmol/L Anion Gap (12-20) BUN (9-16) mg/dL Creatinine (0.5-1.4) mg/dL Estim Creat Clear Calc Estimated GFR Random Glucose (60-115) mg/dL Lactic Acid 1.3 (0.5-2.0) mmol/L Calcium (8.4-10.2) mg/dL Total Bilirubin (0.0-1.0) mg/dL AST (5-37) U/L ALT (0-40) U/L Alkaline Phosphatase (39-117) U/L C-Reactive Protein (< or = 0.50) mg/dL Total Protein (6.5-8.0) g/dL Albumin (3.5-5.0) g/dL Critical Care Time Critical Care Time Critical Care Time: Yes Total Critical Care Time: 60 Attestation: I have personally provided critical care time. Time includes review of lab data, radiology results, discussion with consultants, and monitoring for potential decompensation. Intervention performed as documented. Discharge Plan Discharge Clinical Impression: Cellulitis Patient Disposition: Admitted As Inpatient
--- NOTE | 2023-04-11 19:53 | PC.NURSE ---
pt AOx4, reporting left leg pain, swelling, and a wound leaking puss post fall a few weeks ago. wound site is warm to the touch and red. sinus tach on monitor, pressure stable. Pt temp 103.2 rectal. Pt hard stick, IV tried twice and awaiting US attempt by Lev. katie drawing labs/BCs to get fluids and abx started
[2023-04-11 20:00] VITALS: PULSE 97; RESP 19; O2SAT 91
[2023-04-11 20:17] LABS: MANUAL DIFF FLAG NO
[2023-04-11 20:20] LABS: Basophils Absolute Auto 0.1 X10*3/uL (0.0-0.2); Basophils Percent Auto 0.3 % (0-2); Hematocrit 44.6 % (42.0-52.0); Hemoglobin 14.2 g/dl (14.0-18.0); Imm Gran Abs Auto 0.16 X10*3/uL (0.00-0.03); Imm Gran Pct Auto 0.7 % (0.0-0.4); Lymphocytes Absolute Auto 0.9 X10*3/uL (1.2-4.9); Mean Corpuscular HGB Conc 31.8 g/dl (31.0-36.0); Mean Corpuscular Hemoglobin 26.2 pg (27.0-33.0); Mean Corpuscular Volume 82.3 fL (80.0-98.0); Mean Platelet Volume 9.6 fL (9.4-12.4); Monocytes Absolute Auto 1.4 X10*3/uL (0.1-1.2); Monocytes Percent Auto 6.7 % (2-11); Neutrophils Absolute Auto 18.9 x10*3/uL (2.0-8.3); Neutrophils Percent Auto 88.3 % (45-73); Platelet Count 259 X10*3/uL (160-400); Red Blood Count 5.42 X10*6/uL (4.60-5.80); Red Cell Distribution Width 14.3 % (11.0-16.0); White Blood Count 21.5 X10*3/uL (4.8-10.8)
[2023-04-11] MEDS: 0.9 % Sodium Chloride 2,500 ML 999 ML IVCONT (20:26)
[2023-04-11] MEDS: Piperacillin Sodium/Tazobactam 3.375 GM in 0.9 % Sodium Chloride 50 ML IV (20:30)
[2023-04-11] MEDS: vancomycin/NS 2,000 MG/500 ML PLAST..BAG 250 MG IV (20:44)
--- NOTE | 2023-04-11 20:44 | PC.NURSE ---
IV inserted via ultrasound. labs and bcs drawn, fluids and ABX infusing per order. x rays taken pt resting
[2023-04-11 20:46] LABS: Lactic Acid 1.3 mmol/L (0.5-2.0)
[2023-04-11 20:52] LABS: Alanine Aminotransferase 9 U/L (0-40); Albumin Level 4.1 g/dL (3.5-5.0); Alkaline Phosphatase 82 U/L (39-117); Anion Gap 16 (12-20); Aspartate Amino Transferase 14 U/L (5-37); Bilirubin Total 0.6 mg/dL (0.0-1.0); Blood Urea Nitrogen 13 mg/dL (9-16); C Reactive Protein 25.95 mg/dL (< or = 0.50); Calcium 9.2 mg/dL (8.4-10.2); Carbon Dioxide 23 mmol/L (22-29); Chloride 99 mmol/L (96-108); Creatinine Clr Calc Pharmacy 169.6; Estimated Glomerular Filt Rate > 60; Glucose Random 114 mg/dL (60-115); Sodium 134 mmol/L (135-145); Total Protein 7.9 g/dL (6.5-8.0)
[2023-04-11 21:11] LABS: Erythrocyte Sedimentation Rate 44 MM/HR (0-15)
[2023-04-11 21:26] VITALS: TEMP 39.1
[2023-04-11 22:12] VITALS: BP 149/64; PULSE 102; RESP 16; O2SAT 96
--- NOTE | 2023-04-11 22:13 | PM.IMHP ---
History of Present Illness Date of Service: 04/11/23 Chief Complaint: Leg swelling 38-year-old male who denies any past medical history, but snorts heroin presents the hospital with complaints of left lower leg swelling, pain, and redness. Patient reports that he fell and scraped his left baker few days ago, subsequently developing severe pain symptoms including the redness and swelling in his left lower leg. He reports feeling chills, feverish, denies IV drug injection in the area or at all, denies any chest pain, no shortness of breath, no headache or change in vision, no dizziness, no abdominal pain nausea or vomiting, no diarrhea or constipation, no urinary symptoms On arrival to the ED patient hemodynamically stable with a temp of 103.2 degrees and heart rate of 102 Labs are significant for WBC count of 21.5, left shift, ESR of 44, sodium 134, lactic acid normal, CRP of 25.9 X-ray of the tibia-fibula shows diffuse soft tissue swelling in the calf Patient started on IV antibiotics and will be admitted for further management Review of Systems Review of Systems: Yes all other systems are reviewed and are negative [facility] Medical History Polysubstance abuse Social History Alcohol intake: never Patient Tobacco Use Status: Current someday Tobacco user Smoked in Last 30 Days: Yes Use of substances other than those prescribed or required for medical reasons: No Substance Use Type: Crack/Cocaine and Heroin Advance Directives: No Advance Directives Information Provided: No Nutrition Risks: No Nutritional Risk Meds Allergies Allergy/AdvReac Type Severity Reaction Status Date / Time No Known Allergies Allergy Verified 03/11/23 09:32 Home Medications Medication Instructions Recorded Confirmed Last Taken Type No Known Home Meds 04/11/23 04/11/23 Unknown History Physical Exam Vital Signs and Narrative: Vital Signs: Last Vital Signs Temp 102.3 F H 04/11/23 21:26 Pulse 97 04/11/23 20:00 Resp 19 04/11/23 20:00 BP 123/61 04/11/23 19:09 Pulse Ox 91 L 04/11/23 20:00 O2 Del Method Room Air 04/11/23 20:00 BMI result Body Mass Index 41.8 Const: Other: Patient does appear in distress, in pain, General: cooperative Orientation/consciousness: patient oriented x3 Eyes: General: appearance normal, both eyes and all related structures Resp: Effort & Inspection: normal respiratory effort Auscultation: clear to auscultation bilaterally Cardio: Rate: regular rate Rhythm: regular rhythm GI: Palpation (GI): Soft to palpation Auscultation: normal bowel sounds Skin: General skin exam: no rashes or lesions noted Neuro: General: patient oriented x3 Cognition (Neuro): normal cognition Extrem: Other: Left lower extremity baker edema, erythema, severe tenderness, also has an open wound in the anterior baker that is draining some blood, radiating from below the knee to the ankle Results Labs 04/11/23 20:12 04/11/23 20:12 Labs: Laboratory Results - last 24 hr 04/11/23 04/11/23 04/11/23 20:12 20:12 20:12 MCV 82.3 MCH 26.2 L MCHC 31.8 RDW 14.3 Plt Count 259 D MPV 9.6 Immature Gran % (Auto) 0.7 H Neut % (Auto) 88.3 H Lymph % (Auto) 4.[address] [place] % (Auto) 6.7 Eos % (Auto) 0.0 Baso % (Auto) 0.3 Lymph # (Auto) 0.[address] [place] # (Auto) 1.4 H Eos # (Auto) 0.0 Baso # (Auto) 0.1 Abs Immat Gran (auto) 0.16 H Absolute Neuts (auto) 18.9 H Absolute Nucleated RBC 0.000 Nucleated RBC % (auto) 0.0 ESR 44 H Anion Gap 16 Estim Creat Clear Calc 169.6 Estimated GFR > 60 Random Glucose 114 Lactic Acid Calcium 9.2 Total Bilirubin 0.6 AST 14 ALT 9 Alkaline Phosphatase 82 C-Reactive Protein 25.95 H Total Protein 7.9 Albumin 4.1 04/11/23 20:12 MCV MCH MCHC RDW Plt Count MPV Immature Gran % (Auto) Neut % (Auto) Lymph % (Auto) [place] % (Auto) Eos % (Auto) Baso % (Auto) Lymph # (Auto) [place] # (Auto) Eos # (Auto) Baso # (Auto) Abs Immat Gran (auto) Absolute Neuts (auto) Absolute Nucleated RBC Nucleated RBC % (auto) ESR Anion Gap Estim Creat Clear Calc Estimated GFR Random Glucose Lactic Acid 1.3 Calcium Total Bilirubin AST ALT Alkaline Phosphatase C-Reactive Protein Total Protein Albumin Imaging Radiologist's Impressions: Impressions Tibia/Fibula X-Ray 04/11/23 20:51 IMPRESSION: Diffuse soft tissue swelling about the calf. No acute bony abnormality. Assessment and Plan (1) Sepsis: Qualifiers: Sepsis type: sepsis due to unspecified organism Sepsis acute organ dysfunction status: without acute organ dysfunction Qualified Code(s): A41.9 - Sepsis, unspecified organism Status: Acute (2) Cellulitis: Qualifiers: Site of cellulitis: extremity Site of cellulitis of extremity: lower extremity Laterality: left Qualified Code(s): L03.116 - Cellulitis of left lower limb Status: Acute Plan 38-year-old male with past medical history of polysubstance abuse through snorting comes into the hospital with complaints of left lower extremity pain, found to have cellulitis # acute sepsis - tended to cellulitis - has fever, leukocytosis, tachycardia - will treat with IV antibiotics - follow cultures # left lower extremity cellulitis - secondary to fall per patient - has sepsis - treat with IV antibiotics - follow cultures DVT prophylaxis: Lovenox Given patient's need for IV antibiotics patient require minimum 2 nights inpatient hospital stay for further management and monitoring Time Spent With Patient Time: Total time managing care of this patient today ____ minutes. Quality Stroke Does the patient have a stroke diagnosis?: No VTE Prior VTE?: No VTE Risk Level:: Medical - moderate - high VTE Device Contraindication: Treatment Not Indicated VTE Drug Contraindication: N/A - Med Ordered
--- NOTE | 2023-04-11 23:05 | PC.NURSE ---
late entry: this RN spoke with patient, pt continues to have elevated temperature, requested that patient take blanket off, pt refused. This RN explained the importance of keeping the body cool to avoid fever, pt continued to refuse. This RN medicated patient for pain and fever, pt offers no complaints/concerns to this RN. Resting comfortably, respirations even and unlabored
[2023-04-11] MEDS: Morphine Sulfate 4 MG/ML CARTRIDGE IVPUSH (23:15)
[2023-04-11] MEDS: Enoxaparin Sodium 40 MG/0.4 ML SYRINGE SUBCUT (23:15)
[2023-04-11] MEDS: 0.9 % Sodium Chloride Flush 3 ML SYRINGE IVFLUSH (23:15)
[2023-04-11] MEDS: Acetaminophen 325 MG TABLET 650 MG PO (23:15)
--- NOTE | 2023-04-12 00:37 | PC.NURSE ---
assumed care of pt pt resting quietly no apparent distress respirations even and unlabored
[2023-04-12 00:45] VITALS: PULSE 90; RESP 13; TEMP 37.1; O2SAT 86
--- NOTE | 2023-04-12 00:45 | PC.NURSE ---
pt no longer febrile with temp of 98.7 oral O2Sat at 86% RA; pt placed on 2L O2 NC immediate improvement pt now at 97% on 2L NC pt resting comfortably, no apparent distress will CTM
[2023-04-12 00:47] VITALS: BP 103/53; PULSE 90; RESP 17; O2SAT 97
[2023-04-12] MEDS: Piperacillin Sodium/Tazobactam 3.375 GM in 0.9 % Sodium Chloride 50 ML IV ×4 (01:57→20:13)
[2023-04-12 01:58] VITALS: BP 117/60; PULSE 88; RESP 17; O2SAT 97
--- NOTE | 2023-04-12 01:59 | PC.NURSE ---
vss pt remain on O2 NC 2L at 97% zosyn IV hung per JAN pt sleeping respirations even and unlabored pt repositioned himself to R side
--- NOTE | 2023-04-12 02:02 | PC.NURSE ---
verified blood cultures drawn prior to hanging zosyn per MAR
--- NOTE | 2023-04-12 03:33 | PC.NURSE ---
pt remains asleep, respirations even and unlabored no apparent distress handover report given to YESENIA Das
[2023-04-12 06:03] LABS: Basophils Absolute Auto 0.1 X10*3/uL (0.0-0.2); Basophils Percent Auto 0.4 % (0-2); Eosinophils Percent Auto 0.2 % (0-4); Hematocrit 39.1 % (42.0-52.0); Hemoglobin 12.8 g/dl (14.0-18.0); Imm Gran Abs Auto 0.27 X10*3/uL (0.00-0.03); Imm Gran Pct Auto 1.7 % (0.0-0.4); Lymphocytes Absolute Auto 1.1 X10*3/uL (1.2-4.9); Lymphocytes Percent Auto 7.3 % (20-40); MANUAL DIFF FLAG SCAN; Mean Corpuscular HGB Conc 32.7 g/dl (31.0-36.0); Mean Corpuscular Hemoglobin 27.4 pg (27.0-33.0); Mean Corpuscular Volume 83.5 fL (80.0-98.0); Mean Platelet Volume 10.8 fL (9.4-12.4); Monocytes Absolute Auto 1.6 X10*3/uL (0.1-1.2); Neutrophils Absolute Auto 12.6 x10*3/uL (2.0-8.3); Neutrophils Percent Auto 80.4 % (45-73); Platelet Count 178 X10*3/uL (160-400); Red Blood Count 4.68 X10*6/uL (4.60-5.80); Red Cell Distribution Width 14.6 % (11.0-16.0); SCAN SMEAR FLAG 1; White Blood Count 15.7 X10*3/uL (4.8-10.8)
[2023-04-12 06:20] LABS: Anion Gap 14 (12-20); Blood Urea Nitrogen 13 mg/dL (9-16); Calcium 8.3 mg/dL (8.4-10.2); Carbon Dioxide 22 mmol/L (22-29); Chloride 108 mmol/L (96-108); Creatinine Clr Calc Pharmacy 203.5; Estimated Glomerular Filt Rate > 60; Glucose Random 88 mg/dL (60-115); Potassium 4.7 mmol/L (3.3-5.1); Sodium 139 mmol/L (135-145)
[2023-04-12 06:37] LABS: SLIDE REVIEW VERIFIED
--- NOTE | 2023-04-12 06:39 | PC.NURSE ---
Dr Johnson calling due to documentation that pt desatted to 86% throughout the night. Plan for CXR @ this time.
--- NOTE | 2023-04-12 07:14 | PC.NURSE ---
Resumed care of patient this morning, he is currently sleeping in bed, O2 in place d/t desat while sleeping, chest xray ordered, awaiting bed placement at this time
--- NOTE | 2023-04-12 07:14 | PHA.MEDREC ---
Pharmacy Consult ? Medication Reconciliation Pharmacy has completed the medication reconciliation. Reviewed med rec done by nursing (Cailin).
[2023-04-12] MEDS: 0.9 % Sodium Chloride Flush 3 ML SYRINGE IVFLUSH ×3 (07:30→23:19)
[2023-04-12] MEDS: vancomycin HCL 1,250 MG in 0.9 % Sodium Chloride 250 ML 166.67 MG IV ×2 (08:08→21:15)
[2023-04-12] MEDS: Morphine Sulfate 4 MG/ML CARTRIDGE IVPUSH ×4 (08:08→22:24)
--- NOTE | 2023-04-12 08:22 | PC.NURSE ---
L baker wound oozing, yellow puss/blood, cleaned with NS, gauze and wrap applied to leg, pt reporting 10/10 pain, leg is still warm to touch, pt states he still can not feel his foot, +CMS noted.
--- NOTE | 2023-04-12 08:48 | PC.NURSE ---
assumed care of pt pt sleeping, mail list processor on, vitals stable. vanco infusing.
[2023-04-12 08:49] VITALS: PULSE 86; RESP 16; O2SAT 96
--- NOTE | 2023-04-12 10:05 | MHC.RECOVRN ---
This senior mortgage underwriter met with patient after addiction consult was received. Patient laying in bed, awake, in dimly lit room. Patient reports IN heroin use daily, 1/2 bundle. Pt reports IN use daily, 1/2 gram LONI, for past 3 weeks. Patient reports bodyaches, stomach upset. Pt visibly diaphoretic, teary eyes. Patient reports last use 04/10/23. Patient reports overall not feeling well-feels withdrawal and feels s/s of infection. Pt reports is not on MAT, patient reports history of [facility] treatment including detox. Patient reports no history overdose. Pt reports no history of soft skin tissue infections in the past. Reviewed with Addiction Provider Aida Ford.
[2023-04-12] MEDS: methADONE HCl 20 MG/2 ML ORAL.CONC PO ×2 (10:35→18:15)
--- NOTE | 2023-04-12 11:26 | PM.CNOR ---
History of Present Illness HPI Consult date: 04/12/23 Chief complaint: cellulitis, sepsis Narrative: Mr. Covington is a 38-year-old male who denies any past medical history, but snorts heroin presents the hospital with complaints of left lower leg swelling, pain, and redness.? Patient reports that he fell and scraped his left baker few days ago, subsequently developing severe pain symptoms including the redness and swelling in his left lower leg yesterday.? He reports feeling chills, feverish, denies IV drug use. He reported to the ED yesterday evening. He is homeless. X-rays obtained of the tib/fib negative for any acute fracture or dislocation. Orthopedics was consulted for further evaluation and treatment. The patient was admitted to the medical service for treatement of sepsis and cellulitis. Review of Systems Review of Systems: Yes all other systems are reviewed and are negative PMFSH Past Medical History Medical History Polysubstance abuse Social History Social History Alcohol intake: never Patient Tobacco Use Status: Current someday Tobacco user Smoked in Last 30 Days: Yes Use of substances other than those prescribed or required for medical reasons: No Substance Use Type: Crack/Cocaine and Heroin Advance Directives: No Advance Directives Information Provided: No Nutrition Risks: No Nutritional Risk Meds Allergies Allergy/AdvReac Type Severity Reaction Status Date / Time No Known Allergies Allergy Verified 03/11/23 09:32 Active Medications: Current Medications Acetaminophen (Acetaminophen 325 Mg Tablet) 650 mg PO Q6H PRN PRN Reason: Pain, Mild (Pain Scale 1-3) Last Admin: 04/11/23 23:15 Dose: 650 mg Docusate Sodium (Docusate Sodium 100 Mg Capsule) 100 mg PO DAILY PRN PRN Reason: Constipation Enoxaparin Sodium (Enoxaparin Sodium 40 Mg/0.4 Ml Syringe) 40 mg SUBCUT Q24H [facility] Last Admin: 04/11/23 23:15 Dose: 40 mg Piperacillin Sod/Tazobactam (Sod 3.375 gm/ Sodium Chloride) 50 mls @ 100 mls/hr IV Q6H [facility] Last Infusion: 04/12/23 08:09 Dose: Infused Vancomycin HCl 1,250 mg/ (Sodium Chloride) 250 mls @ 166.667 mls/hr IV Q12H [facility] Last Infusion: 04/12/23 10:02 Dose: Infused Morphine Sulfate (Morphine Sulfate 4 Mg/Ml Cartridge) 4 mg IVPUSH Q4H PRN; Protocol PRN Reason: Pain, Severe (Pain Scale 7-10) Last Admin: 04/12/23 08:08 Dose: 4 mg Ondansetron HCl (Ondansetron Hcl 4 Mg/2 Ml Vial) 4 mg IVPUSH Q8H PRN PRN Reason: Nausea and Vomiting Pharmacy Consult (Consult Rx Vancomycin Dosing) 1 each MISCELLANE DAILY PRN PRN Reason: Consult order Sodium Chloride (0.9 % Sodium Chloride Flush 3 Ml Syringe) 3 ml IVFLUSH QSHIFT [facility] Last Admin: 04/12/23 07:30 Dose: 3 ml Home Medications Medication Instructions Recorded Confirmed Last Taken Type No Known Home Meds 04/11/23 04/11/23 Unknown History Physical Exam Vital Signs: Vital Signs: Last Vital Signs Temp 98.7 F 04/12/23 00:45 Pulse 86 04/12/23 08:49 Resp 16 04/12/23 08:49 BP 117/60 04/12/23 01:58 Pulse Ox 96 04/12/23 08:49 O2 Del Method Nasal Cannula 04/12/23 08:49 O2 Flow Rate 2 04/12/23 08:49 BMI result Body Mass Index 41.8 Const: General: cooperative, healthy appearing and no acute distress Resp: Effort & Inspection: normal respiratory effort and able to speak in complete sentences Cardio: Rate: regular rate Peripheral pulses: Peripheral pulses 2+ throughout GI: Palpation (GI): Soft to palpation Skin: Lesions: no lesions Rashes: no rashes Extrem: Other: Left anterior tibial wound drainage of purulent discharge. Diffuse erythema and edema. Tenerness to palpation over all anatomical landmarks from the calf distally. Able to move all digits. Reports numbness. Pedal pulse intact. Results Labs 04/12/23 05:43 04/12/23 05:43 Labs: Abnormal lab results 04/11/23 04/11/23 04/11/23 Range/Units 20:12 20:12 20:12 WBC 21.5 H (4.8-10.8) X10*3/uL Hgb (14.0-18.0) g/dl Hct (42.0-52.0) % MCH 26.2 L (27.0-33.0) pg Immature Gran % (Auto) 0.7 H (0.0-0.4) % Neut % (Auto) 88.3 H (45-73) % Lymph % (Auto) 4.0 L (20-40) % Lymph # (Auto) 0.9 L (1.2-4.9) X10*3/uL [place] # (Auto) 1.4 H (0.1-1.2) X10*3/uL Abs Immat Gran (auto) 0.16 H (0.00-0.03) X10*3/uL Absolute Neuts (auto) 18.9 H (2.0-8.3) x10*3/uL ESR 44 H (0-15) MM/HR Sodium 134 L (135-145) mmol/L Calcium (8.4-10.2) mg/dL C-Reactive Protein 25.95 H (< or = 0.50) mg/dL 04/12/23 04/12/23 Range/Units 05:43 05:43 WBC 15.7 H (4.8-10.8) X10*3/uL Hgb 12.8 L (14.0-18.0) g/dl Hct 39.1 L (42.0-52.0) % MCH (27.0-33.0) pg Immature Gran % (Auto) 1.7 H (0.0-0.4) % Neut % (Auto) 80.4 H (45-73) % Lymph % (Auto) 7.3 L (20-40) % Lymph # (Auto) 1.1 L (1.2-4.9) X10*3/uL [place] # (Auto) 1.6 H (0.1-1.2) X10*3/uL Abs Immat Gran (auto) 0.27 H (0.00-0.03) X10*3/uL Absolute Neuts (auto) 12.6 H (2.0-8.3) x10*3/uL ESR (0-15) MM/HR Sodium (135-145) mmol/L Calcium 8.3 L D (8.4-10.2) mg/dL C-Reactive Protein (< or = 0.50) mg/dL H & H 04/11/23 04/12/23 Range/Units 20:12 05:43 Hgb 14.2 12.8 L (14.0-18.0) g/dl Hct 44.6 39.1 L (42.0-52.0) % All other labs normal. Assessment and Plan (1) Sepsis: Qualifiers: Sepsis type: sepsis due to unspecified organism Sepsis acute organ dysfunction status: without acute organ dysfunction Qualified Code(s): A41.9 - Sepsis, unspecified organism Status: Acute (2) Cellulitis: Qualifiers: Laterality: left Site of cellulitis: extremity Site of cellulitis of extremity: lower extremity Qualified Code(s): L03.116 - Cellulitis of left lower limb Status: Acute Continue IV abx Blue night splint for comfort Encourage gentle ROM Elevate on three pillows above heart level Dressing changes as appropriate Pain management as appropriate No orthopedic intervention needed at this time. Time Spent With Patient Time: Total time managing care of this patient today ____ minutes. Procedures Date of Service Date of Service: 04/12/23
--- NOTE | 2023-04-12 11:44 | PC.NURSE ---
ekg done, tech drawing labs. pt is sleepy but arousable, vitals stable, respirations 16, 100% O2 sat.
--- NOTE | 2023-04-12 13:35 | PC.NURSE ---
pt resting, vitals stable, awaiting bed assignment.
--- NOTE | 2023-04-12 13:40 | PC.NURSE ---
pt medicated per JAN w abx and pain, reporting 10/10 leg pain. pt pending transport to room assignment.
--- NOTE | 2023-04-12 13:42 | PC.NURSE ---
awaiting callback from RN on S3 to give report.
--- NOTE | 2023-04-12 14:14 | PC.NURSE ---
pt awaiting transport
[2023-04-12 15:10] VITALS: BMI 42.2
[2023-04-12 16:00] VITALS: BP 113/63; PULSE 85; RESP 20; TEMP 36.6; O2SAT 97
[2023-04-12 19:14] VITALS: BP 131/62; PULSE 64; RESP 18; TEMP 37.1; O2SAT 97
[2023-04-12 19:24] LABS: Vancomycin Random 6.5 mcg/mL (15-20)
[2023-04-12] MEDS: Enoxaparin Sodium 40 MG/0.4 ML SYRINGE SUBCUT (21:15)
--- NOTE | 2023-04-13 03:13 | MHC.PIE ---
p; iv site infiltated, unable to flush without pt in pain. pt reports his iv has been placed by u/s. pt reports lab has been taking blood from fingers d/t inability to find viable vains. numerus attempts made to find vains with no result. pt refusing anymore attempts. pt needs picc? unable to give scheduled zosyn, vanco or prn morphine for pain. note; pt c/o pain 08/18. note; no prn pain med ordered at this time i; dr an notified; e; [facility]
[2023-04-13 03:47] VITALS: BP 130/68; PULSE 81; RESP 16; TEMP 36.6; O2SAT 97
[2023-04-13] MEDS: Acetaminophen 325 MG TABLET 650 MG PO (05:40)
[2023-04-13] MEDS: oxyCODONE HCl Immed Release 5 MG TABLET PO (05:40)
[2023-04-13 06:29] LABS: Creatinine Clr Calc Pharmacy 216.8; Estimated Glomerular Filt Rate > 60
[2023-04-13 08:00] VITALS: BP 134/71; PULSE 63; RESP 16; TEMP 36.2; O2SAT 95
--- NOTE | 2023-04-13 08:13 | PM.PNORT ---
Subjective Subjective Date of Service: 04/13/23 Interval history: Patient resting in bed in no acute distress. Complains of continued pain in the ankle, foot, calf. Reports tingling in the foot. No overnight events. Physical Exam Vital Signs: Vital Signs: Last Vital Signs Temp 98 F 04/13/23 03:47 Pulse 81 04/13/23 03:47 Resp 16 04/13/23 03:47 BP 130/68 04/13/23 03:47 Pulse Ox 97 04/13/23 03:47 O2 Del Method Nasal Cannula 04/13/23 03:47 O2 Flow Rate 2 04/13/23 03:47 BMI result Body Mass Index 42.2 Const: General: cooperative, healthy appearing and no acute distress Resp: Effort & Inspection: normal respiratory effort and able to speak in complete sentences Cardio: Rate: regular rate Peripheral pulses: Peripheral pulses 2+ throughout GI: Palpation (GI): Soft to palpation Skin: Lesions: no lesions Rashes: no rashes Extrem: Other: Left anterior tibial wound drainage of purulent discharge. Diffuse erythema and edema. Tenderness to palpation over all anatomical landmarks from the calf distally. Able to move all digits. Reports tingling. Compartments are supple. Pedal pulse intact. Procedures Date of Service Date of Service: 04/13/23 Progress Note: A&P Assessment and plan (1) Sepsis: Status: Acute Assessment and Plan: Continue IV abx Blue night splint for comfort Encourage gentle ROM Elevate on three pillows above heart level Dressing changes as appropriate Pain management as appropriate No orthopedic intervention needed at this time. (2) Cellulitis: Status: Acute Time Spent With Patient Time: Total time managing care of this patient today ____ minutes. Quality Stroke Does the patient have a stroke diagnosis?: No VTE Prior VTE?: No VTE Risk Level:: Medical - moderate - high VTE Device Contraindication: Treatment Not Indicated VTE Drug Contraindication: N/A - Med Ordered
[2023-04-13] MEDS: methADONE HCl 20 MG/2 ML ORAL.CONC 40 MG PO (08:55)
--- NOTE | 2023-04-13 12:02 | MHC.RECOVRN ---
Pts referral sent to [facility] to continue methadone after discharge.
--- NOTE | 2023-04-13 13:13 | MHC.CM.PN ---
met with pt who explains thsat he is homeless and that he might not be homeless when dcd he didnt know yet pt pcp tess ne[facility] plan is for no sabine pt to be seen by care team
--- NOTE | 2023-04-13 13:51 | HO.ADDICTPRO ---
Subjective Subjective Date of Service: 04/13/23 Reason For Visit: cellulitis, sepsis Interim History: Patient currently medically admitted with sepsis and cellulitis. Seen by windows mobile developer on 04/12 and methadone inititated to address withdrawal sx. 20mg x2 one dose in AM and one dose early evening. Patient seen by this residential mortgage underwriter and windows mobile developer earlier this morning, awake, alert, somewhat engaged in interview--RN attempting to insert new IV at time of visit. He reports methadone was helpful, and would like to continue titrating dose. He states that he was previously on methadone at [facility], unclear what his dose was or when time in treatment was. Interview paused due to visible patient discomfort while getting IV placed. Of note, did not appear to be experiencing acute withdrawal sx, no restlessness, diaphoresis, yawning, rhinorrhea noted. Review of Systems Constitutional: Reports as per HPI and Reports no additional constitutional complaints Mental Status Exam Mental Status Exam Patient Appearance: Malodorous Level of Consciousness: Awake Affect Description: Constricted Speech Pattern: Clear Judgement: Fair Diagnostics Vital Signs (24Hr): Vital Signs - 24 hr 04/12/23 16:00 04/12/23 19:14 04/13/23 03:47 Temperature 97.9 F 98.7 F 98 F Pulse Rate 85 64 81 Respiratory Rate 20 18 16 Blood Pressure 113/63 131/62 130/68 Pulse Oximetry 97 97 97 Oxygen Delivery Method Room Air Nasal Cannula Nasal Cannula Oxygen Flow Rate 2 2 04/13/23 08:00 Temperature 97.1 F Pulse Rate 63 Respiratory Rate 16 Blood Pressure 134/71 Pulse Oximetry 95 Oxygen Delivery Method Room Air Oxygen Flow Rate BMI result Body Mass Index 42.2 Labs 04/12/23 05:43 04/13/23 05:33 Labs: Laboratory Results - last 48 hr 04/11/23 04/11/23 04/11/23 20:12 20:12 20:12 WBC 21.5 H RBC 5.42 Hgb 14.2 Hct 44.6 MCV 82.3 MCH 26.2 L MCHC 31.8 RDW 14.3 Plt Count 259 D MPV 9.6 Immature Gran % (Auto) 0.7 H Neut % (Auto) 88.3 H Lymph % (Auto) 4.0 L [place] % (Auto) 6.7 Eos % (Auto) 0.0 Baso % (Auto) 0.3 Lymph # (Auto) 0.9 L [place] # (Auto) 1.4 H Eos # (Auto) 0.0 Baso # (Auto) 0.1 Abs Immat Gran (auto) 0.16 H Absolute Neuts (auto) 18.9 H Absolute Nucleated RBC 0.000 Nucleated RBC % (auto) 0.0 Smear Tech's Comments ESR 44 H Sodium 134 L Potassium 4.0 Chloride 99 Carbon Dioxide 23 Anion Gap 16 BUN 13 Creatinine 0.84 Estim Creat Clear Calc 169.6 Estimated GFR > 60 Random Glucose 114 Lactic Acid Calcium 9.2 Total Bilirubin 0.6 AST 14 ALT 9 Alkaline Phosphatase 82 C-Reactive Protein 25.95 H Total Protein 7.9 Albumin 4.1 Random Vancomycin 04/11/23 04/12/23 04/12/23 20:12 05:43 05:43 WBC 15.7 H RBC 4.68 Hgb 12.8 L Hct 39.1 L MCV 83.5 MCH 27.4 MCHC 32.7 RDW 14.6 Plt Count 178 D MPV 10.8 Immature Gran % (Auto) 1.7 H Neut % (Auto) 80.4 H Lymph % (Auto) 7.3 L [place] % (Auto) 10.0 Eos % (Auto) 0.2 Baso % (Auto) 0.4 Lymph # (Auto) 1.1 L [place] # (Auto) 1.6 H Eos # (Auto) 0.0 Baso # (Auto) 0.1 Abs Immat Gran (auto) 0.27 H Absolute Neuts (auto) 12.6 H Absolute Nucleated RBC 0.000 Nucleated RBC % (auto) 0.0 Smear Tech's Comments VERIFIED ESR Sodium 139 Potassium 4.7 Chloride 108 Carbon Dioxide 22 Anion Gap 14 BUN 13 Creatinine 0.70 Estim Creat Clear Calc 203.5 Estimated GFR > 60 Random Glucose 88 Lactic Acid 1.3 Calcium 8.3 L D Total Bilirubin AST ALT Alkaline Phosphatase C-Reactive Protein Total Protein Albumin Random Vancomycin 04/12/23 04/13/23 18:29 05:33 WBC RBC Hgb Hct MCV MCH MCHC RDW Plt Count MPV Immature Gran % (Auto) Neut % (Auto) Lymph % (Auto) [place] % (Auto) Eos % (Auto) Baso % (Auto) Lymph # (Auto) [place] # (Auto) Eos # (Auto) Baso # (Auto) Abs Immat Gran (auto) Absolute Neuts (auto) Absolute Nucleated RBC Nucleated RBC % (auto) Smear Tech's Comments ESR Sodium Potassium Chloride Carbon Dioxide Anion Gap BUN Creatinine 0.66 Estim Creat Clear Calc 216.8 Estimated GFR > 60 Random Glucose Lactic Acid Calcium Total Bilirubin AST ALT Alkaline Phosphatase C-Reactive Protein Total Protein Albumin Random Vancomycin 6.5 L Imaging Radiology Impressions: ITS Impressions Tibia/Fibula X-Ray 04/11/23 20:51 IMPRESSION: Diffuse soft tissue swelling about the calf. No acute bony abnormality. Chest X-Ray 04/12/23 06:49 IMPRESSION: No acute cardiopulmonary abnormality. Medications Medications Current Medications Acetaminophen (Acetaminophen 325 Mg Tablet) 650 mg PO Q6H PRN PRN Reason: Pain, Mild (Pain Scale 1-3) Last Admin: 04/13/23 05:40 Dose: 650 mg Docusate Sodium (Docusate Sodium 100 Mg Capsule) 100 mg PO DAILY PRN PRN Reason: Constipation Enoxaparin Sodium (Enoxaparin Sodium 40 Mg/0.4 Ml Syringe) 40 mg SUBCUT Q24H [facility] Last Admin: 04/12/23 21:15 Dose: 40 mg Piperacillin Sod/Tazobactam (Sod 3.375 gm/ Sodium Chloride) 50 mls @ 100 mls/hr IV Q6H [facility] Last Admin: 04/13/23 11:14 Dose: Not Given Vancomycin HCl 1,250 mg/ (Sodium Chloride) 250 mls @ 166.667 mls/hr IV Q8H [facility] Last Admin: 04/13/23 03:19 Dose: Not Given Methadone HCl (Methadone Hcl 20 Mg/2 Ml Oral.Conc) 40 mg PO DAILY [facility] Last Admin: 04/13/23 08:55 Dose: 40 mg Morphine Sulfate (Morphine Sulfate 4 Mg/Ml Cartridge) 4 mg IVPUSH Q4H PRN; Protocol PRN Reason: Pain, Severe (Pain Scale 7-10) Last Admin: 04/12/23 22:24 Dose: 4 mg Ondansetron HCl (Ondansetron Hcl 4 Mg/2 Ml Vial) 4 mg IVPUSH Q8H PRN PRN Reason: Nausea and Vomiting Oxycodone HCl (Oxycodone Hcl Immed Release 5 Mg Tablet) 5 mg PO Q4H PRN PRN Reason: Pain, Moderate(Pain Scale 4-6) Last Admin: 04/13/23 05:40 Dose: 5 mg Pharmacy Consult (Consult Rx Vancomycin Dosing) 1 each MISCELLANE DAILY PRN PRN Reason: Consult order Sodium Chloride (0.9 % Sodium Chloride Flush 3 Ml Syringe) 3 ml IVFLUSH QSHIFT [facility] Last Admin: 04/13/23 09:01 Dose: Not Given Allergies Allergies Allergy/AdvReac Type Severity Reaction Status Date / Time No Known Allergies Allergy Verified 03/11/23 09:32 Assessment & Plan Assessment & Plan (1) Opioid use disorder: Status: Acute Code(s): F11.90 - Opioid use, unspecified, uncomplicated Assessment and Plan: continue methadone titration--50mg tomorrow (04/13) will reassess to deptermine if additional 5mg is needed this evening RN to send referral to [facility] for admission and continuation of methadone treatment following hospital discharge Total time managing care of this patient today __20__ minutes.
[2023-04-13] MEDS: vancomycin HCL 1,250 MG in 0.9 % Sodium Chloride 250 ML 166.67 MG IV ×2 (14:27→20:37)
[2023-04-13] MEDS: Morphine Sulfate 4 MG/ML CARTRIDGE IVPUSH ×2 (14:30→19:37)
--- NOTE | 2023-04-13 14:47 | P.PNIM_ITS ---
Subjective Subjective Date of Service: 04/12/23 Interval History: cellulitis Review of Systems Erythema and swelling seems as h&p. Denies any chest pain or shortness of breath or fever feels anxious Physical Exam Vital Signs: Vital Signs: Last Vital Signs Vitals from 04/12/2023 reviewed BMI result Body Mass Index 42.2 Appearance: Alert.? Oriented X3.? not in distress.? cvs: [id number], [id number] . res: clear to auscultation ,no rhonchii or wheezing abd: no rebound or guarding ,nt, bs present. ext Left anterior tibial wound drainage of purulent discharge. Diffuse erythema and edema. Tenerness to palpation over all anatomical landmarks from the calf distally. Able to move all digits. some numbness. Pedal pulse intact, no cyanosis. neuro: axo3 , nonfocal. Objective Data Active Medications Acetaminophen (Acetaminophen 325 Mg Tablet) 650 mg PO Q6H PRN PRN Reason: Pain, Mild (Pain Scale 1-3) Last Admin: 04/13/23 05:40 Dose: 650 mg Documented By: KRYSTLE Docusate Sodium (Docusate Sodium 100 Mg Capsule) 100 mg PO DAILY PRN PRN Reason: Constipation Enoxaparin Sodium (Enoxaparin Sodium 40 Mg/0.4 Ml Syringe) 40 mg SUBCUT Q24H [facility] Last Admin: 04/12/23 21:15 Dose: 40 mg Documented By: DREA Piperacillin Sod/Tazobactam (Sod 3.375 gm/ Sodium Chloride) 50 mls @ 100 mls/hr IV Q6H [facility] Last Admin: 04/13/23 11:14 Dose: Not Given Documented By: DON Non-Admin Reason: No Access Vancomycin HCl 1,250 mg/ (Sodium Chloride) 250 mls @ 166.667 mls/hr IV Q8H [facility] Last Admin: 04/13/23 14:27 Dose: 166.67 mls/hr Documented By: DON Methadone HCl (Methadone Hcl 20 Mg/2 Ml Oral.Conc) 40 mg PO DAILY [facility] Last Admin: 04/13/23 08:55 Dose: 40 mg Documented By: DON Morphine Sulfate (Morphine Sulfate 4 Mg/Ml Cartridge) 4 mg IVPUSH Q4H PRN; Protocol PRN Reason: Pain, Severe (Pain Scale 7-10) Last Admin: 04/13/23 14:30 Dose: 4 mg Documented By: DON Ondansetron HCl (Ondansetron Hcl 4 Mg/2 Ml Vial) 4 mg IVPUSH Q8H PRN PRN Reason: Nausea and Vomiting Oxycodone HCl (Oxycodone Hcl Immed Release 5 Mg Tablet) 5 mg PO Q4H PRN PRN Reason: Pain, Moderate(Pain Scale 4-6) Last Admin: 04/13/23 05:40 Dose: 5 mg Documented By: KRYSTLE Pharmacy Consult (Consult Rx Vancomycin Dosing) 1 each MISCELLANE DAILY PRN PRN Reason: Consult order Sodium Chloride (0.9 % Sodium Chloride Flush 3 Ml Syringe) 3 ml IVFLUSH QSIAFT [facility] Last Admin: 04/13/23 09:01 Dose: Not Given Documented By: DON Non-Admin Reason: No Access Labs 04/12/23 05:43 04/13/23 05:33 Labs: Laboratory Results - last 24 hr 04/12/23 04/13/23 18:29 05:33 Estim Creat Clear Calc 216.8 Estimated GFR > 60 Random Vancomycin 6.5 L Microbiology Microbiology Results: Microbiology 04/11/23 20:15 Blood Culture - Preliminary Blood - Venous No growth after 24 hours. 04/11/23 20:12 Blood Culture - Preliminary Blood - Venous No growth after 24 hours. Assessment and Plan (1) Cellulitis: Status: Acute (2) Sepsis: Status: Acute (3) Opioid use disorder: Status: Acute Plan date of service 04/13/23. 38-year-old male with past medical history of polysubstance abuse through snorting comes into the hospital with complaints of left lower extremity pain, found to have cellulitis acute sepsis sec to cellulitis hx of drug use has fever, leukocytosis, tachycardia utox positive- for fentnyl continue treat with IV antibiotics,follow cultures left lower extremity cellulitis- secondary to fall per patient/sepsis - treat with IV antibiotics - follow cultures Opoid use?: added addiction eval DVT prophylaxis: Lovenox inpatient need: sepsis sec to IV antibiotics ,need ortho eval Time Spent With Patient Time: Total time managing care of this patient today ____ minutes. Quality Stroke Does the patient have a stroke diagnosis?: No VTE Prior VTE?: No VTE Risk Level:: Medical - moderate - high VTE Device Contraindication: Treatment Not Indicated VTE Drug Contraindication: N/A - Med Ordered
--- NOTE | 2023-04-13 15:00 | HO.PM.IMPN ---
Subjective Subjective Date of Service: 04/13/23 Interval History: cellulitis,sepsis Review of Systems erythema /sweling seems similar no fevers Physical Exam Vital Signs: Vital Signs: Last Vital Signs Temp 97.1 F 04/13/23 08:00 Pulse 63 04/13/23 08:00 Resp 16 04/13/23 08:00 BP 134/71 04/13/23 08:00 Pulse Ox 95 04/13/23 08:00 O2 Del Method Room Air 04/13/23 08:00 O2 Flow Rate 2 04/13/23 03:47 BMI result Body Mass Index 42.2 Appearance: Alert.? Oriented X3.? not in distress.? cvs: [id number], [id number] . res: clear to auscultation ,no rhonchii or wheezing abd: no rebound or guarding ,nt, bs present. ext Left anterior tibial wound drainage of purulent discharge. Diffuse erythema and edema. Tenerness to palpation over all anatomical landmarks from the calf distally. Able to move all digits. some numbness. Pedal pulse intact, no cyanosis. neuro: axo3 , nonfocal. Objective Data Active Medications Acetaminophen (Acetaminophen 325 Mg Tablet) 650 mg PO Q6H PRN PRN Reason: Pain, Mild (Pain Scale 1-3) Last Admin: 04/13/23 05:40 Dose: 650 mg Documented By: KRYSTLE Docusate Sodium (Docusate Sodium 100 Mg Capsule) 100 mg PO DAILY PRN PRN Reason: Constipation Enoxaparin Sodium (Enoxaparin Sodium 40 Mg/0.4 Ml Syringe) 40 mg SUBCUT Q24H [facility] Last Admin: 04/12/23 21:15 Dose: 40 mg Documented By: DREA Piperacillin Sod/Tazobactam (Sod 3.375 gm/ Sodium Chloride) 50 mls @ 100 mls/hr IV Q6H [facility] Last Admin: 04/13/23 11:14 Dose: Not Given Documented By: DON Non-Admin Reason: No Access Vancomycin HCl 1,250 mg/ (Sodium Chloride) 250 mls @ 166.667 mls/hr IV Q8H [facility] Last Admin: 04/13/23 14:27 Dose: 166.67 mls/hr Documented By: DON Methadone HCl (Methadone Hcl 20 Mg/2 Ml Oral.Conc) 40 mg PO DAILY [facility] Last Admin: 04/13/23 08:55 Dose: 40 mg Documented By: DON Morphine Sulfate (Morphine Sulfate 4 Mg/Ml Cartridge) 4 mg IVPUSH Q4H PRN; Protocol PRN Reason: Pain, Severe (Pain Scale 7-10) Last Admin: 04/13/23 14:30 Dose: 4 mg Documented By: DON Ondansetron HCl (Ondansetron Hcl 4 Mg/2 Ml Vial) 4 mg IVPUSH Q8H PRN PRN Reason: Nausea and Vomiting Oxycodone HCl (Oxycodone Hcl Immed Release 5 Mg Tablet) 5 mg PO Q4H PRN PRN Reason: Pain, Moderate(Pain Scale 4-6) Last Admin: 04/13/23 05:40 Dose: 5 mg Documented By: KRYSTLE Pharmacy Consult (Consult Rx Vancomycin Dosing) 1 each MISCELLANE DAILY PRN PRN Reason: Consult order Sodium Chloride (0.9 % Sodium Chloride Flush 3 Ml Syringe) 3 ml IVFLUSH QSHIFT [facility] Last Admin: 04/13/23 09:01 Dose: Not Given Documented By: DON Non-Admin Reason: No Access Labs 04/12/23 05:43 04/13/23 05:33 Labs: Laboratory Results - last 24 hr 04/12/23 04/13/23 18:29 05:33 Estim Creat Clear Calc 216.8 Estimated GFR > 60 Random Vancomycin 6.5 L Microbiology Microbiology Results: Microbiology 04/11/23 20:15 Blood Culture - Preliminary Blood - Venous No growth after 24 hours. 04/11/23 20:12 Blood Culture - Preliminary Blood - Venous No growth after 24 hours. Assessment and Plan (1) Opioid use disorder: Status: Acute (2) Sepsis: Status: Acute (3) Cellulitis: Status: Acute Plan 38-year-old male with past medical history of polysubstance abuse through snorting comes into the hospital with complaints of left lower extremity pain, found to have cellulitis ?acute sepsis sec to cellulitis hx of drug use has fever, leukocytosis, tachycardia utox positive- for fentnyl continue treat with IV antibiotics,follow cultures added leg MRI ortho following -continue iv antibiotics , no surgery intervention so far. ?left lower extremity cellulitis- secondary to fall per patient/sepsis - treat with IV antibiotics - follow cultures Opoid use?: addiction eval-started methadone DVT prophylaxis: Lovenox inpatient need: sepsis sec to IV antibiotics ,need workup, id eval. Time Spent With Patient Time: Total time managing care of this patient today ____ minutes. Quality Stroke Does the patient have a stroke diagnosis?: No VTE Prior VTE?: No VTE Risk Level:: Medical - moderate - high VTE Device Contraindication: Treatment Not Indicated VTE Drug Contraindication: N/A - Med Ordered
--- NOTE | 2023-04-13 15:40 | MHC.RECOVRN ---
Met with pt to follow up regarding methadone titration. RN with pt completing paperwork prior to MRI. Pt reporting withdrawal symptoms, most notable stomach cramps and achey legs. Pt interested in receiving additional methadone dose this evening to address symptoms. Denies other questions or concerns. Discussed with Aida Ford APRN.
[2023-04-13] MEDS: 0.9 % Sodium Chloride Flush 3 ML SYRINGE IVFLUSH ×2 (16:05→19:37)
--- NOTE | 2023-04-13 16:16 | P.CNID_ITS ---
History of Present Illness Data of Consult Service Date: 04/13/23 Requesting physician: Ju Ball Primary Care Provider: Unknown Physician HPI Reason for consult: sepsis,cellulitis He presents with redness LLE from calf to thigh. He says this started three days ago. He fell last week. He uses fentanyl and snorts but denies injecting. Review of Systems Review of Systems: Yes all other systems are reviewed and are negative PMFSH Past Medical History Medical History Polysubstance abuse Family History Family history: reviewed and not pertinent Social History Social History Household Members: None Housing: Homeless Do you presently have visiting nurse or other home services: No Alcohol intake: never Patient Tobacco Use Status: Current everyday Tobacco user Tobacco use type: Cigarette e-Cigarette/Vaping Use: Never Used Second Hand Smoke Exposure: No Substance Use Type: Crack/Cocaine and Heroin service: No Meds Allergies Allergy/AdvReac Type Severity Reaction Status Date / Time No Known Allergies Allergy Verified 03/11/23 09:32 Active Medications: Current Medications Acetaminophen (Acetaminophen 325 Mg Tablet) 650 mg PO Q6H PRN PRN Reason: Pain, Mild (Pain Scale 1-3) Last Admin: 04/13/23 05:40 Dose: 650 mg Docusate Sodium (Docusate Sodium 100 Mg Capsule) 100 mg PO DAILY PRN PRN Reason: Constipation Enoxaparin Sodium (Enoxaparin Sodium 40 Mg/0.4 Ml Syringe) 40 mg SUBCUT Q24H [facility] Last Admin: 04/12/23 21:15 Dose: 40 mg Piperacillin Sod/Tazobactam (Sod 3.375 gm/ Sodium Chloride) 50 mls @ 100 mls/hr IV Q6H [facility] Last Admin: 04/13/23 11:14 Dose: Not Given Vancomycin HCl 1,250 mg/ (Sodium Chloride) 250 mls @ 166.667 mls/hr IV Q8H [facility] Last Infusion: 04/13/23 16:05 Dose: Infused Methadone HCl (Methadone Hcl 20 Mg/2 Ml Oral.Conc) 50 mg PO DAILY [facility] Methadone HCl (Methadone Hcl 20 Mg/2 Ml Oral.Conc) 5 mg PO ONCE ONE Stop: 04/13/23 18:01 Morphine Sulfate (Morphine Sulfate 4 Mg/Ml Cartridge) 4 mg IVPUSH Q4H PRN; Protocol PRN Reason: Pain, Severe (Pain Scale 7-10) Last Admin: 04/13/23 14:30 Dose: 4 mg Ondansetron HCl (Ondansetron Hcl 4 Mg/2 Ml Vial) 4 mg IVPUSH Q8H PRN PRN Reason: Nausea and Vomiting Oxycodone HCl (Oxycodone Hcl Immed Release 5 Mg Tablet) 5 mg PO Q4H PRN PRN Reason: Pain, Moderate(Pain Scale 4-6) Last Admin: 04/13/23 05:40 Dose: 5 mg Pharmacy Consult (Consult Rx Vancomycin Dosing) 1 each MISCELLANE DAILY PRN PRN Reason: Consult order Sodium Chloride (0.9 % Sodium Chloride Flush 3 Ml Syringe) 3 ml IVFLUSH [facility] Last Admin: 04/13/23 16:05 Dose: 3 ml Home Medications Medication Instructions Recorded Confirmed Last Taken Type No Known Home Meds 04/11/23 04/11/23 Unknown History Physical Exam Vital Signs: Vital Signs: Last Vital Signs Temp 97.1 F 04/13/23 08:00 Pulse 63 04/13/23 08:00 Resp 16 04/13/23 08:00 BP 134/71 04/13/23 08:00 Pulse Ox 95 04/13/23 08:00 O2 Del Method Room Air 04/13/23 08:00 O2 Flow Rate 2 04/13/23 03:47 BMI result Body Mass Index 42.2 Const: General: cooperative HEENT: Head: Yes normal to inspection Face and sinus: Yes normal facial exam Mouth: Normal oral and palatal mucosa present Teeth and gingiva: dentition normal Eyes: General: appearance normal, both eyes and all related structures Pupils: Equal, round and reactive pupils present Resp: Effort & Inspection: normal respiratory effort Cardio: Rate: regular rate Rhythm: regular rhythm GI: Palpation (GI): Soft to palpation and nontender : General: Yes no CVA tenderness Back/Spine/Pelvis: Back: no CVA tenderness Skin: General skin exam: no rashes or lesions noted Neuro: General: moves all extremities Cranial nerves: Yes Equal, round and reactive pupils present Extrem: Other: reddened LLE ,not much improvement Psych: Appearance: grossly normal Results Labs 04/12/23 05:43 04/13/23 05:33 Labs: BMP 04/13/23 05:33 Creatinine 0.66 Microbiology Microbiology Results: Microbiology 04/11/23 20:15 Blood - Venous Blood Culture - Preliminary No growth after 24 hours. 04/11/23 20:12 Blood - Venous Blood Culture - Preliminary No growth after 24 hours. Assessment and Plan (1) Sepsis: Qualifiers: Sepsis type: sepsis due to unspecified organism Sepsis acute organ dysfunction status: without acute organ dysfunction Qualified Code(s): A41.9 - Sepsis, unspecified organism Status: Acute He may have strep or staph. He has likely large bacterial toxin burden also. He may have immunosuppression leading to slow recovery (2) Opioid use disorder: Status: Acute (3) Cellulitis: Qualifiers: Laterality: left Site of cellulitis: extremity Site of cellulitis of extremity: lower extremity Qualified Code(s): L03.116 - Cellulitis of left lower limb Status: Acute Plan Would continue Vancomycin Switch piperacillin/tazobactam to Clindamycin 900 mg IV every eight hours decreases bacterial burden and toxin Probably po Clindamycin 300 mg tid when better for five days. Check HIV and Hepatitis C. Time Spent With Patient Time: Total time managing care of this patient today ____ minutes.
--- NOTE | 2023-04-13 16:37 | PM.EVENT ---
Event Note Date of Service: 06/06/23 Event Note: Check MRI with contrast left leg evaluate for osteomyelitis with small draining wound. Time Spent With Patient Time: Total time managing care of this patient today ____ minutes.
[2023-04-13 18:11] VITALS: BP 159/81; PULSE 74; RESP 20; TEMP 36.5; O2SAT 96
[2023-04-13] MEDS: methADONE HCl 20 MG/2 ML ORAL.CONC 5 MG PO (18:15)
[2023-04-13] MEDS: Clindamycin Phosphate/D5W 900 MG/50 ML PIGGYBACK 50 MG IV (18:15)
[2023-04-13 19:40] VITALS: BP 131/60; PULSE 766; TEMP 36.5; O2SAT 97
[2023-04-13 20:19] LABS: Vancomycin Random 10.4 mcg/mL (15-20)
--- NOTE | 2023-04-13 20:27 | HE.PHANOTE ---
RE RISA PATIENT MISSED O400 DOSE DUE TO INFILTRATION. ORDER WAS NEVER RETIMED, TROUGH IS BASED ON Q15 HOUR DOSING. WILL GET ANOTHER LEVEL AFTER 3 PROPER DOSES JOBY
[2023-04-14] MEDS: Clindamycin Phosphate/D5W 900 MG/50 ML PIGGYBACK 50 MG IV ×3 (01:48→17:55)
[2023-04-14] MEDS: Morphine Sulfate 4 MG/ML CARTRIDGE IVPUSH ×4 (01:54→18:35)
[2023-04-14 03:34] VITALS: BP 131/72; PULSE 83; RESP 18; TEMP 36.5; O2SAT 98
[2023-04-14] MEDS: vancomycin HCL 1,250 MG in 0.9 % Sodium Chloride 250 ML 166.67 MG IV ×3 (04:01→19:55)
[2023-04-14 07:56] VITALS: BP 134/73; PULSE 68; RESP 17; TEMP 36.5; O2SAT 95
[2023-04-14] MEDS: methADONE HCl 20 MG/2 ML ORAL.CONC 50 MG PO (09:27)
[2023-04-14] MEDS: 0.9 % Sodium Chloride Flush 3 ML SYRINGE IVFLUSH ×3 (09:28→21:27)
--- NOTE | 2023-04-14 10:33 | HO.PM.IMPN ---
Subjective Subjective Date of Service: 04/14/23 Interval History: f/u on cellulitis of the left leg, redness is better Physical Exam Vital Signs: Vital Signs: Last Vital Signs Temp 97.7 F 04/14/23 07:56 Pulse 68 04/14/23 07:56 Resp 17 04/14/23 07:56 BP 134/73 04/14/23 07:56 Pulse Ox 95 04/14/23 07:56 O2 Del Method Room Air 04/14/23 07:56 O2 Flow Rate 2 04/13/23 03:47 BMI result Body Mass Index 42.2 Const: Other: General: AO X 3, no acute distress Resp: CTA bilateral CVS: S1,S2,RRR GI: +BS, NT, no distention Skin: swelling and residual erythema of left lower leg Neuro: motor grossly intact Psych: appropriate affect Objective Data Active Medications Acetaminophen (Acetaminophen 325 Mg Tablet) 650 mg PO Q6H PRN PRN Reason: Pain, Mild (Pain Scale 1-3) Last Admin: 04/13/23 05:40 Dose: 650 mg Documented By: KRYSTLE Docusate Sodium (Docusate Sodium 100 Mg Capsule) 100 mg PO DAILY PRN PRN Reason: Constipation Enoxaparin Sodium (Enoxaparin Sodium 40 Mg/0.4 Ml Syringe) 40 mg SUBCUT Q24H [facility] Last Admin: 04/12/23 21:15 Dose: 40 mg Documented By: DREA Vancomycin HCl 1,250 mg/ (Sodium Chloride) 250 mls @ 166.667 mls/hr IV Q8H [facility] Last Infusion: 04/14/23 05:41 Dose: 0 mls/hr Documented By: ZOE Clindamycin Phosphate (Cleocin) 900 mg in 50 mls @ 50 mls/hr IV Q8H [facility] Last Infusion: 04/14/23 10:16 Dose: 0 mls/hr Documented By: LESIA Methadone HCl (Methadone Hcl 20 Mg/2 Ml Oral.Conc) 50 mg PO DAILY [facility] Last Admin: 04/14/23 09:27 Dose: 50 mg Documented By: LESIA Morphine Sulfate (Morphine Sulfate 4 Mg/Ml Cartridge) 4 mg IVPUSH Q4H PRN; Protocol PRN Reason: Pain, Severe (Pain Scale 7-10) Last Admin: 04/14/23 09:27 Dose: 4 mg Documented By: LESIA Ondansetron HCl (Ondansetron Hcl 4 Mg/2 Ml Vial) 4 mg IVPUSH Q8H PRN PRN Reason: Nausea and Vomiting Oxycodone HCl (Oxycodone Hcl Immed Release 5 Mg Tablet) 5 mg PO Q4H PRN PRN Reason: Pain, Moderate(Pain Scale 4-6) Last Admin: 04/13/23 05:40 Dose: 5 mg Documented By: KRYSTLE Pharmacy Consult (Consult Rx Vancomycin Dosing) 1 each MISCELLANE DAILY PRN PRN Reason: Consult order Sodium Chloride (0.9 % Sodium Chloride Flush 3 Ml Syringe) 3 ml IVFLUSH [facility] Last Admin: 04/14/23 09:28 Dose: 3 ml Documented By: LESIA Labs 04/12/23 05:43 04/13/23 05:33 Labs: Laboratory Results - last 24 hr 04/13/23 19:30 Random Vancomycin 10.4 L Microbiology Microbiology Results: Microbiology 04/11/23 20:15 Blood Culture - Preliminary Blood - Venous No growth after 48 hours. 04/11/23 20:12 Blood Culture - Preliminary Blood - Venous No growth after 48 hours. Assessment and Plan (1) Opioid use disorder: Status: Acute (2) Sepsis: Status: Acute (3) Cellulitis: Status: Acute Plan 38-year-old male with past medical history of polysubstance abuse through snorting comes into the hospital with complaints of left lower extremity pain, found to have cellulitis Sepsis d/t cellulitis Cellulitis of the left leg cultures negative MRI shows soft tissues swelling c/w cellulitis -Continue Clind for 1 more day then change to PO Opoid use: Methadone per Addiction med DVT prophylaxis: Lovenox inpatient need: sepsis needs IV antibiotics for at least 1 more day Time Spent With Patient Time: Total time managing care of this patient today ____ minutes. Quality Stroke Does the patient have a stroke diagnosis?: No VTE Prior VTE?: No VTE Risk Level:: Medical - moderate - high VTE Device Contraindication: Treatment Not Indicated VTE Drug Contraindication: N/A - Med Ordered
[2023-04-14 11:14] LABS: Hematocrit 40.1 % (42.0-52.0); Hemoglobin 12.9 g/dl (14.0-18.0); Mean Corpuscular HGB Conc 32.2 g/dl (31.0-36.0); Mean Corpuscular Hemoglobin 26.2 pg (27.0-33.0); Mean Corpuscular Volume 81.5 fL (80.0-98.0); Mean Platelet Volume 9.4 fL (9.4-12.4); Platelet Count 227 X10*3/uL (160-400); Red Blood Count 4.92 X10*6/uL (4.60-5.80); Red Cell Distribution Width 14.4 % (11.0-16.0); White Blood Count 7.3 X10*3/uL (4.8-10.8)
[2023-04-14 11:28] LABS: Anion Gap 12 (12-20); Blood Urea Nitrogen 6 mg/dL (9-16); Calcium 8.9 mg/dL (8.4-10.2); Carbon Dioxide 26 mmol/L (22-29); Chloride 106 mmol/L (96-108); Creatinine Clr Calc Pharmacy 230.8; Estimated Glomerular Filt Rate > 60; Glucose Random 96 mg/dL (60-115); Sodium 140 mmol/L (135-145)
--- NOTE | 2023-04-14 14:00 | MHC.RECOVRN ---
Spoke with intake at [facility], they have received pts referral and pt is able to present day following discharge with last dose letter and photo ID.
[2023-04-14 14:02] VITALS: BP 134/73; PULSE 68; O2SAT 95
--- NOTE | 2023-04-14 14:54 | PC.NURSE ---
Cleaned and changed dressing, left lower leg.
[2023-04-14 15:33] VITALS: BP 125/60; PULSE 71; RESP 20; TEMP 36.2; O2SAT 96
[2023-04-14 19:02] LABS: Vancomycin Random 13.4 mcg/mL (15-20)
--- NOTE | 2023-04-14 19:20 | HE.PHANOTE ---
VANCOMYCIN DOSING ADJSUTMENT BASED ON SCR AND THE TROUGH OF 13.4 DOSE CONTINUED AT 1250 Q 8H. NEXT TROUGH 04/15 @ 1800
[2023-04-14 20:00] VITALS: BP 130/69; PULSE 82; RESP 19; TEMP 37; O2SAT 96
[2023-04-15] MEDS: Clindamycin Phosphate/D5W 900 MG/50 ML PIGGYBACK 50 MG IV (01:48)
[2023-04-15] MEDS: oxyCODONE HCl Immed Release 5 MG TABLET PO ×4 (02:05→21:22)
[2023-04-15 02:55] VITALS: BP 138/85; PULSE 69; RESP 16; TEMP 36.5; O2SAT 95
[2023-04-15 03:22] VITALS: RESP 18
--- NOTE | 2023-04-15 04:36 | PC.NURSE ---
Pt reported pain and burning at IV site when starting Vancomycin infusion. Infusion was stopped, IV taken out, patient tolerated well. Multiple attempts were made including nursing brickmason supervisor to reestablish IV with no success. Pt also request no IV attempt to his chest or foot. Dr. Dickey was notified and will explore midline option in the morning. All questions answered, pt has no concerns at this time, is aware of plan of care.
[2023-04-15 05:04] LABS: HIV AB/AG Nonreactive (Nonreactive)
[2023-04-15 07:35] VITALS: BP 140/81; PULSE 70; RESP 18; TEMP 36.2; O2SAT 98
[2023-04-15 09:01] LABS: Creatinine Clr Calc Pharmacy 204.4; Estimated Glomerular Filt Rate > 60
[2023-04-15] MEDS: methADONE HCl 20 MG/2 ML ORAL.CONC 50 MG PO (09:13)
--- NOTE | 2023-04-15 10:39 | MHC.RECOVRN ---
Met with pt to follow up regarding methadone titration. Pt laying in bed, eyes closed, wakes to voice. Pt reports having received his methadone at a later time than normal this morning and is reporting body aches, chills, diaphoresis. Pt reports the 50 mg is an appropriate dose and pt does not wish to increase. Pt also reports since he lost IV access he has not received pain medication which is also a factor in current presentation. Pt wishes to be left alone for awhile. Denies questions or concerns for t/w. Discussed with Aida Ford APRN.
--- NOTE | 2023-04-15 12:36 | HO.PM.IMPN ---
Subjective Subjective Date of Service: 04/15/23 Interval History: f/u on cellulitis of the left leg, redness is better today but still claims he is having difficulty walking Physical Exam Vital Signs: Vital Signs: Last Vital Signs Temp 97.2 F 04/15/23 07:35 Pulse 70 04/15/23 07:35 Resp 18 04/15/23 07:35 BP 140/81 H 04/15/23 07:35 Pulse Ox 98 04/15/23 07:35 O2 Del Method Room Air 04/15/23 07:35 O2 Flow Rate 2 04/13/23 03:47 BMI result Body Mass Index 42.2 Const: Other: General: AO X 3, no acute distress Resp: CTA bilateral CVS: S1,S2,RRR GI: +BS, NT, no distention Skin: swelling and residual erythema of left lower leg Neuro: motor grossly intact Psych: appropriate affect Objective Data Active Medications Acetaminophen (Acetaminophen 325 Mg Tablet) 650 mg PO Q6H PRN PRN Reason: Pain, Mild (Pain Scale 1-3) Last Admin: 04/13/23 05:40 Dose: 650 mg Documented By: KRYSTLE Clindamycin HCl (Clindamycin Hcl 300 Mg Capsule) 300 mg PO Q8H [facility] Docusate Sodium (Docusate Sodium 100 Mg Capsule) 100 mg PO DAILY PRN PRN Reason: Constipation Enoxaparin Sodium (Enoxaparin Sodium 40 Mg/0.4 Ml Syringe) 40 mg SUBCUT Q24H [facility] Last Admin: 04/12/23 21:15 Dose: 40 mg Documented By: DREA Methadone HCl (Methadone Hcl 20 Mg/2 Ml Oral.Conc) 50 mg PO DAILY [facility] Last Admin: 04/15/23 09:13 Dose: 50 mg Documented By: FRIEDA Morphine Sulfate (Morphine Sulfate 4 Mg/Ml Cartridge) 4 mg IVPUSH Q4H PRN; Protocol PRN Reason: Pain, Severe (Pain Scale 7-10) Last Admin: 04/14/23 18:35 Dose: 4 mg Documented By: LESIA Ondansetron HCl (Ondansetron Hcl 4 Mg/2 Ml Vial) 4 mg IVPUSH Q8H PRN PRN Reason: Nausea and Vomiting Oxycodone HCl (Oxycodone Hcl Immed Release 5 Mg Tablet) 5 mg PO Q4H PRN PRN Reason: Pain, Moderate(Pain Scale 4-6) Last Admin: 04/15/23 09:13 Dose: 5 mg Documented By: FRIEDA Pharmacy Consult (Consult Rx Vancomycin Dosing) 1 each MISCELLANE DAILY PRN PRN Reason: Consult order Sodium Chloride (0.9 % Sodium Chloride Flush 3 Ml Syringe) 3 ml IVFLUSH QSHIFT [facility] Last Admin: 04/15/23 09:14 Dose: Not Given Documented By: FRIEDA Non-Admin Reason: No Access Labs 04/14/23 11:00 04/15/23 07:28 Labs: Laboratory Results - last 24 hr 04/14/23 04/14/23 04/15/23 11:00 18:23 07:28 Estim Creat Clear Calc 204.4 Estimated GFR > 60 Random Vancomycin 13.4 L HIV 1&2 Ab/P24 Ag 4thGn Nonreactive Assessment and Plan (1) Opioid use disorder: Status: Acute (2) Sepsis: Status: Acute (3) Cellulitis: Status: Acute Plan 38-year-old male with past medical history of polysubstance abuse through snorting comes into the hospital with complaints of left lower extremity pain, found to have cellulitis Sepsis d/t celluliti of left leg--sepsis resolved, cultures negative MRI shows soft tissues swelling c/w cellulitis -DC IV Vanco, Oral Clinda starting today 03/15 Opoid use: Methadone per Addiction med DVT prophylaxis: Lovenox inpatient need: Sepsis management and PT recommending rehab, he is ready to go when bed available Time Spent With Patient Time: Total time managing care of this patient today ____ minutes. Quality Stroke Does the patient have a stroke diagnosis?: No VTE Prior VTE?: No VTE Risk Level:: Medical - moderate - high VTE Device Contraindication: Treatment Not Indicated VTE Drug Contraindication: N/A - Med Ordered
[2023-04-15] MEDS: Clindamycin HCL 300 MG CAPSULE PO ×2 (13:42→21:15)
[2023-04-15 16:00] VITALS: BP 143/77; PULSE 69; RESP 19; TEMP 36.2; O2SAT 94
[2023-04-15] MEDS: Acetaminophen 325 MG TABLET 650 MG PO (17:24)
[2023-04-16] MEDS: Clindamycin HCL 300 MG CAPSULE PO ×3 (05:16→19:37)
[2023-04-16] MEDS: oxyCODONE HCl Immed Release 5 MG TABLET PO ×3 (05:19→19:43)
[2023-04-16] MEDS: Acetaminophen 325 MG TABLET 650 MG PO ×2 (05:19→21:06)
[2023-04-16 07:47] VITALS: BP 127/92; PULSE 64; RESP 16; TEMP 37; O2SAT 95
[2023-04-16] MEDS: methADONE HCl 20 MG/2 ML ORAL.CONC 50 MG PO (08:45)
--- NOTE | 2023-04-16 09:27 | HO.PM.IMPN ---
Subjective Subjective Date of Service: 04/16/23 Interval History: f/u on cellulitis of the left leg, redness is nearly all gone Physical Exam Vital Signs: Vital Signs: Last Vital Signs Temp 98.6 F 04/16/23 07:47 Pulse 64 04/16/23 07:47 Resp 16 04/16/23 07:47 BP 127/92 H 04/16/23 07:47 Pulse Ox 95 04/16/23 07:47 O2 Del Method Room Air 04/16/23 07:47 O2 Flow Rate 2 04/13/23 03:47 BMI result Body Mass Index 42.2 Const: Other: General: AO X 3, no acute distress Resp: CTA bilateral CVS: S1,S2,RRR GI: +BS, NT, no distention Skin: no redness of the leg anymore Neuro: motor grossly intact Psych: appropriate affect Objective Data Active Medications Acetaminophen (Acetaminophen 325 Mg Tablet) 650 mg PO Q6H PRN PRN Reason: Pain, Mild (Pain Scale 1-3) Last Admin: 04/16/23 05:19 Dose: 650 mg Documented By: KYE Clindamycin HCl (Clindamycin Hcl 300 Mg Capsule) 300 mg PO Q8H [facility] Last Admin: 04/16/23 05:16 Dose: 300 mg Documented By: KYE Docusate Sodium (Docusate Sodium 100 Mg Capsule) 100 mg PO DAILY PRN PRN Reason: Constipation Enoxaparin Sodium (Enoxaparin Sodium 40 Mg/0.4 Ml Syringe) 40 mg SUBCUT Q24H [facility] Last Admin: 04/12/23 21:15 Dose: 40 mg Documented By: DREA Methadone HCl (Methadone Hcl 20 Mg/2 Ml Oral.Conc) 50 mg PO DAILY [facility] Last Admin: 04/16/23 08:45 Dose: 50 mg Documented By: SHELBY Morphine Sulfate (Morphine Sulfate 4 Mg/Ml Cartridge) 4 mg IVPUSH Q4H PRN; Protocol PRN Reason: Pain, Severe (Pain Scale 7-10) Last Admin: 04/14/23 18:35 Dose: 4 mg Documented By: LESIA Ondansetron HCl (Ondansetron Hcl 4 Mg/2 Ml Vial) 4 mg IVPUSH Q8H PRN PRN Reason: Nausea and Vomiting Oxycodone HCl (Oxycodone Hcl Immed Release 5 Mg Tablet) 5 mg PO Q4H PRN PRN Reason: Pain, Moderate(Pain Scale 4-6) Last Admin: 04/16/23 05:19 Dose: 5 mg Documented By: KYE Pharmacy Consult (Consult Rx Vancomycin Dosing) 1 each MISCELLANE DAILY PRN PRN Reason: Consult order Sodium Chloride (0.9 % Sodium Chloride Flush 3 Ml Syringe) 3 ml IVFLUSH QSHIFT [facility] Last Admin: 04/16/23 08:45 Dose: Not Given Documented By: SHELBY Non-Admin Reason: No Access Labs 04/14/23 11:00 04/15/23 07:28 Assessment and Plan (1) Cellulitis: Status: Acute (2) Sepsis: Status: Acute Plan 38-year-old male with past medical history of polysubstance abuse through snorting comes into the hospital with complaints of left lower extremity pain, found to have cellulitis Sepsis d/t celluliti of left leg--sepsis resolved, cultures negative MRI shows soft tissues swelling c/w cellulitis -Was on Vanco and was swithced to Clinda by ID, Oral Clinda starting today 03/15 for 5 days ending 03/19 Pain and difficulty walking--PT is recommending rehab, he is agreable Opoid use: Methadone per Addiction med DVT prophylaxis: Lovenox inpatient need: Sepsis management and PT recommending rehab, he is ready to go when bed available Time Spent With Patient Time: Total time managing care of this patient today ____ minutes. Quality Stroke Does the patient have a stroke diagnosis?: No VTE Prior VTE?: No VTE Risk Level:: Medical - moderate - high VTE Device Contraindication: Treatment Not Indicated VTE Drug Contraindication: N/A - Med Ordered
--- NOTE | 2023-04-16 09:30 | P.DS_ITS ---
DS: Providers Provider Date of Service: 04/16/23 Date of admission: 04/11/23 22:11 Primary care physician: Kirt Jamison MD Consults: 04/12/23 08:06 Addiction Medicine Routine Consulting Provider: Addiction Covering Reason for consultation: drug use Has provider been notified: No 04/12/23 09:48 Consult to Orthopedics Routine Consulting Provider: [facility] Reason for consultation: foot sprain/severe leg cellulitis Has provider been notified: No 04/13/23 13:21 Consult to Infectious Diseases Routine Consulting Provider: [facility] Infectious Disease Reason for consultation: CELLULITIS Has provider been notified: No DS: Diagnosis Discharge Diagnosis (1) Cellulitis: Status: Acute (2) Sepsis: Status: Resolved DS: Summary Hospital Course Hospital Course: Chief Complaint: Leg swelling 38-year-old male who denies any past medical history, but snorts heroin presents the hospital with complaints of left lower leg swelling, pain, and redness.? Patient reports that he fell and scraped his left baker few days ago, subsequently developing severe pain symptoms including the redness and swelling in his left lower leg.? He reports feeling chills, feverish, denies IV drug injection in the area or at all, denies any chest pain, no shortness of breath, no headache or change in vision, no dizziness, no abdominal pain nausea or vomiting, no diarrhea or constipation, no urinary symptoms On arrival to the ED patient hemodynamically stable with a temp of 103.2 degrees and heart rate of 102 Labs are significant for WBC count of 21.5, left shift, ESR of 44, sodium 134, lactic acid normal, CRP of 25.9 X-ray of the tibia-fibula shows diffuse soft tissue swelling in the calf Patient started on IV antibiotics and will be admitted for further management. Hospital Course: This patient with hstory of IV drug use presented with pain, swelling and redness of the left lower leg and was admittef for treatement of sepsis due to Cellulitis and initially treated with IV Zosyn and Vancomycin for several days, blood cultures have been negative, ID recommeding changing antibiotics to Clindamycin and he has signficantly improved with clindamycin and will be treated with oral Clindamcyin through march 19 for 7 days of clindamycin Opioid dependence--Addiction med has started on Methadone 50 mg daily Pain and difficulty walking related to cellulitis--PT is recommending short term rehab, To short term rehab for less than 30 days Time Spent with Patient Time attestation: Total time managing care of this patient today ____ minutes. Discharge coordination time: Greater than 30 minutes Quality: Safe Use of Opioids Does Pt have an Active Cancer Diagnosis on the Problem List?: No Quality: Stroke Does the patient have a stroke diagnosis?: No Physical Exam Vital Signs: Vital Signs: Last Vital Signs Temp 98.6 F 04/16/23 07:47 Pulse 64 04/16/23 07:47 Resp 16 04/16/23 07:47 BP 127/92 H 04/16/23 07:47 Pulse Ox 95 04/16/23 07:47 O2 Del Method Room Air 04/16/23 07:47 O2 Flow Rate 2 04/13/23 03:47 BMI result Body Mass Index 42.2 Const: Other: General: AO X 3, no acute distress Resp: CTA bilateral CVS: S1,S2,RRR GI: +BS, NT, no distention Skin: No rash Neuro: motor grossly intact Psych: appropriate affect DS: Data Data Completed and Pending Labs on day of discharge: Preliminary micro results at discharge 04/11/23 20:15 Blood Culture - Preliminary Blood - Venous No growth after 48 hours. 04/11/23 20:12 Blood Culture - Preliminary Blood - Venous No growth after 48 hours. Discharge Plan Discharge Anticipated Discharge Date/Time: 04/18/23 10:49 Patient Disposition: Home, Self-Care Discharge Diagnosis: Sepsis, cellulitis, opioid use desorder Referrals: Kirt Jamison MD [Primary Care Provider] - 1 Week Discharge Medications: New clindamycin HCl 300 mg Capsule 300 mg PO Q8H Qty: 6 0RF methadone [Methadose] 10 mg/mL Concentrate 50 mg PO DAILY Qty: 30 0RF Rx Instructions: Partial Fill upon patient request. Discharge Orders: Discharge Order (Routine); Ordered 04/18/23 Ordered By: Mesfin Clarke Diet: Advance to usual diet Activity on Discharge: As tolerated Stand Alone Forms: Patient Portal Discharge page Care Plan Goals: full recovery from cellulitis and sepsis, abstinence from drugs Health Concerns: Sepsis, cellulitis. Opiate use disorder Difficulty walking Plan of Treatment: Cellulitis: Take clindamycin as recommended and follow up with her primary care doctor within a week, participating physical therapy. Opioid use desorder:Take methadone and avoid illicit substances Assessment: See above Discharge Date/Time: 04/18/23 11:02
[2023-04-16 09:55] VITALS: BP 127/92; PULSE 64; O2SAT 95
[2023-04-16 15:03] VITALS: BP 136/79; PULSE 67; RESP 18; TEMP 36.8; O2SAT 95
--- NOTE | 2023-04-16 16:30 | MHC.CM.PN ---
CM MET WITH PT TO DISCUSS DC PLANNING PT IS AWARE THERE HAVE BEEN NO BED OFFERS HE IS ALSO AWARE THE REFERRAL HAS BEEN EXPANDED 50+ MILES HE WILL CONTINUE TO WORK WITH PT DCP: STR VS LONGTERM
[2023-04-16 19:24] VITALS: BP 134/82; PULSE 74; RESP 16; TEMP 36.7; O2SAT 96
[2023-04-17 03:02] VITALS: BP 130/83; PULSE 64; RESP 16; TEMP 35.9; O2SAT 93
[2023-04-17] MEDS: Clindamycin HCL 300 MG CAPSULE PO ×3 (03:23→19:28)
[2023-04-17] MEDS: oxyCODONE HCl Immed Release 5 MG TABLET PO ×4 (03:26→15:51)
[2023-04-17] MEDS: Acetaminophen 325 MG TABLET 650 MG PO ×2 (03:26→11:48)
[2023-04-17 07:08] VITALS: BP 130/58; PULSE 62; RESP 18; TEMP 36.9; O2SAT 93
[2023-04-17 07:22] LABS: Glucose, Whole Blood 102 mg/dL (60-115)
[2023-04-17] MEDS: methADONE HCl 20 MG/2 ML ORAL.CONC 50 MG PO (07:54)
[2023-04-17 08:17] LABS: Creatinine Clr Calc Pharmacy 198.8; Estimated Glomerular Filt Rate > 60
[2023-04-17 09:27] VITALS: BP 130/58; PULSE 62; O2SAT 93
--- NOTE | 2023-04-17 09:27 | P.PNIM_ITS ---
Subjective Subjective Date of Service: 04/17/23 Interval History: f/u on cellulitis of the left leg, redness is resolved, no new issues Physical Exam Vital Signs: Vital Signs: Last Vital Signs Temp 98.4 F 04/17/23 07:08 Pulse 62 04/17/23 07:08 Resp 18 04/17/23 07:08 BP 130/58 L 04/17/23 07:08 Pulse Ox 93 04/17/23 07:08 O2 Del Method Room Air 04/17/23 07:08 O2 Flow Rate 2 04/13/23 03:47 BMI result Body Mass Index 42.2 Const: Other: General: AO X 3, no acute distress Resp: CTA bilateral CVS: S1,S2,RRR GI: +BS, NT, no distention Skin: No rash Neuro: motor grossly intact Psych: appropriate affect Objective Data Active Medications Acetaminophen (Acetaminophen 325 Mg Tablet) 650 mg PO Q6H PRN PRN Reason: Pain, Mild (Pain Scale 1-3) Last Admin: 04/17/23 03:26 Dose: 650 mg Documented By: TEJINDER Clindamycin HCl (Clindamycin Hcl 300 Mg Capsule) 300 mg PO Q8H [facility] Last Admin: 04/17/23 03:23 Dose: 300 mg Documented By: TEJINDER Docusate Sodium (Docusate Sodium 100 Mg Capsule) 100 mg PO DAILY PRN PRN Reason: Constipation Enoxaparin Sodium (Enoxaparin Sodium 40 Mg/0.4 Ml Syringe) 40 mg SUBCUT Q24H [facility] Last Admin: 04/12/23 21:15 Dose: 40 mg Documented By: DREA Methadone HCl (Methadone Hcl 20 Mg/2 Ml Oral.Conc) 50 mg PO DAILY [facility] Last Admin: 04/17/23 07:54 Dose: 50 mg Documented By: FRIEDA Ondansetron HCl (Ondansetron Hcl 4 Mg/2 Ml Vial) 4 mg IVPUSH Q8H PRN PRN Reason: Nausea and Vomiting Oxycodone HCl (Oxycodone Hcl Immed Release 5 Mg Tablet) 5 mg PO Q4H PRN PRN Reason: Pain, Moderate(Pain Scale 4-6) Last Admin: 04/17/23 07:57 Dose: 5 mg Documented By: FRIEDA Pharmacy Consult (Consult Rx Vancomycin Dosing) 1 each MISCELLANE DAILY PRN PRN Reason: Consult order Sodium Chloride (0.9 % Sodium Chloride Flush 3 Ml Syringe) 3 ml IVFLUSH QSHIFT [facility] Last Admin: 04/17/23 07:55 Dose: Not Given Documented By: FRIEDA Non-Admin Reason: No Access Labs 04/14/23 11:00 04/17/23 07:49 Labs: Laboratory Results - last 24 hr 04/17/23 04/17/23 07:00 07:49 Estim Creat Clear Calc 198.8 Estimated GFR > 60 POC Glucose 102 Microbiology Microbiology Results: Microbiology 04/11/23 20:15 Blood Culture - Final Blood - Venous No growth after 5 days. 04/11/23 20:12 Blood Culture - Final Blood - Venous No growth after 5 days. Assessment and Plan (1) Cellulitis: Status: Acute (2) Sepsis: Status: Acute Plan 38-year-old male with past medical history of polysubstance abuse through snorting comes into the hospital with complaints of left lower extremity pain, found to have cellulitis Sepsis d/t celluliti of left leg--sepsis resolved, MRI shows soft tissues swelling c/w cellulitis, cultures negative -Was on Vanco and was swithced to Clinda by ID, Oral Clinda starting today 03/15 for 5 days ending 03/19 Pain and difficulty walking--PT is recommending rehab, he is agreable, there is lack of motivation on his part, to continue work with staff to improve and avoid rehab which is proving to be difficult to locate Opoid use: Methadone per Addiction med DVT prophylaxis: Lovenox inpatient need: Sepsis management and PT recommending rehab, he is ready to go when bed available or home if improving. Time Spent With Patient Time: Total time managing care of this patient today ____ minutes. Quality Stroke Does the patient have a stroke diagnosis?: No VTE Prior VTE?: No VTE Risk Level:: Medical - moderate - high VTE Device Contraindication: Treatment Not Indicated VTE Drug Contraindication: N/A - Med Ordered
--- NOTE | 2023-04-17 13:13 | MHC.CM.PN ---
Addendum entered by Catrachita Mulligan 04/17/23 14:26: PT HAS AGREED TO [facility] REFERRALS AND IS AWARE HE WILL NEED TO FOLLOW UP ON THOSE REFERRALS INDEPENDENTLY PT IS AWARE CM IS WORKING ON [facility] PLACEMENT AND THERE ARE NO BEDS AVAILABLE TODAY CM WILL CALL AGAIN TOMORROW MORNING Original Note: CM MET WITH PT TO DISCUSS DC PLANNING PT IS AWARE THERE ARE NO SNF BED OFFERS AND [facility] REFERRALS MAY BE MADE IF HE IS AGREEABLE HE REPORTS HE IS NOW INTERESTED IN A POSSIBLE CSS PLACEMENT CM CONTACTED [employer] [facility]ORDIN[facility], THEY WILL MEET WITH PT TO DISCUSS POSSIBLE TREATMENT OPTIONS
--- NOTE | 2023-04-17 14:11 | MHC.RECOVRN ---
Met with pt to discuss CSS. Pt aware no bed availability today but referral has been sent to [facility], [facility], [facility], [facility], and [facility], [place]. Pt provided with CSS contact information to follow up from the community. CM aware.
[2023-04-17 15:39] VITALS: BP 128/71; PULSE 65; RESP 16; TEMP 36; O2SAT 93
[2023-04-17 19:11] VITALS: BP 121/59; PULSE 74; RESP 16; TEMP 36.4; O2SAT 94
[2023-04-18 03:12] VITALS: BP 105/56; PULSE 67; RESP 16; TEMP 36.3; O2SAT 95
[2023-04-18] MEDS: Clindamycin HCL 300 MG CAPSULE PO (04:38)
[2023-04-18 07:45] VITALS: BP 130/62; PULSE 75; RESP 18; TEMP 36.2; O2SAT 98
[2023-04-18] MEDS: methADONE HCl 20 MG/2 ML ORAL.CONC 50 MG PO (07:59)
[2023-04-18] MEDS: 0.9 % Sodium Chloride Flush 3 ML SYRINGE IVFLUSH (07:59)
--- NOTE | 2023-04-18 08:31 | HO.PM.IMPN ---
Subjective Subjective Date of Service: 04/18/23 Interval History: f/u on cellulitis of the left leg, redness is resolved, no new issues or concerns Physical Exam Vital Signs: Vital Signs: Last Vital Signs Temp 97.2 F 04/18/23 07:45 Pulse 75 04/18/23 07:45 Resp 18 04/18/23 07:45 BP 130/62 04/18/23 07:45 Pulse Ox 98 04/18/23 07:45 O2 Del Method Room Air 04/18/23 07:45 O2 Flow Rate 2 04/13/23 03:47 BMI result Body Mass Index 42.2 Const: Other: General: AO X 3, no acute distress Resp: CTA bilateral CVS: S1,S2,RRR GI: +BS, NT, no distention Skin: No rash Neuro: motor grossly intact Psych: appropriate affect Objective Data Active Medications Acetaminophen (Acetaminophen 325 Mg Tablet) 650 mg PO Q6H PRN PRN Reason: Pain, Mild (Pain Scale 1-3) Last Admin: 04/17/23 11:48 Dose: 650 mg Documented By: FRIEDA Clindamycin HCl (Clindamycin Hcl 300 Mg Capsule) 300 mg PO Q8H [facility] Last Admin: 04/18/23 04:38 Dose: 300 mg Documented By: ILAN Docusate Sodium (Docusate Sodium 100 Mg Capsule) 100 mg PO DAILY PRN PRN Reason: Constipation Enoxaparin Sodium (Enoxaparin Sodium 40 Mg/0.4 Ml Syringe) 40 mg SUBCUT Q24H ON [facility] OF [facility] Last Admin: 04/12/23 21:15 Dose: 40 mg Documented By: DREA Methadone HCl (Methadone Hcl 20 Mg/2 Ml Oral.Conc) 50 mg PO DAILY [facility] Last Admin: 04/18/23 07:59 Dose: 50 mg Documented By: MO Ondansetron HCl (Ondansetron Hcl 4 Mg/2 Ml Vial) 4 mg IVPUSH Q8H PRN PRN Reason: Nausea and Vomiting Pharmacy Consult (Consult Rx Vancomycin Dosing) 1 each MISCELLANE DAILY PRN PRN Reason: Consult order Sodium Chloride (0.9 % Sodium Chloride Flush 3 Ml Syringe) 3 ml IVFLUSH QSHIFT ON LICENSE OF [facility] Last Admin: 04/18/23 07:59 Dose: 3 ml Documented By: MO Labs 04/14/23 11:00 04/17/23 07:49 Assessment and Plan (1) Opioid use disorder: Status: Acute (2) Sepsis: Status: Acute (3) Cellulitis: Status: Acute Plan 38-year-old male with past medical history of polysubstance abuse through snorting comes into the hospital with complaints of left lower extremity pain, found to have cellulitis Sepsis d/t celluliti of left leg--sepsis resolved, MRI shows soft tissues swelling c/w cellulitis, cultures negative -Was on Vanco and was swithced to Clinda by ID, Oral Clinda starting today 03/15 for 5 days ending 03/19 Pain and difficulty walking--PT is recommending rehab, he is agreable, there is lack of motivation on his part, to continue work with staff to improve and avoid rehab which is proving to be difficult to locate Opoid use: Methadone per Addiction med DVT prophylaxis: Lovenox inpatient need: Sepsis management and PT recommending rehab vs homejenniferely discharge today Time Spent With Patient Time: Total time managing care of this patient today ____ minutes. Quality Stroke Does the patient have a stroke diagnosis?: No VTE Prior VTE?: No VTE Risk Level:: Medical - moderate - high VTE Device Contraindication: Treatment Not Indicated VTE Drug Contraindication: N/A - Med Ordered
== END 2023-04-18 11:02 | disposition home or self-care (01) | DRG 720 ==
LOC: HO.ED 19:54 → HO.EDOVER 22:15 → HO.S3 04-12 13:29
PROVIDERS: Internal Medicine; Physician Assistant; Physician Assistant Medical; Admitting Provider Internal Medicine; Emergency Provider Emergency Medicine; PCP Family Medicine; Visit Provider Internal Medicine
DX: A41.9 Sepsis, unspecified organism (principal); L03.116 Cellulitis of left lower limb; E66.9 Obesity, unspecified; Z68.41 Body mass index [BMI] 40.0-44.9, adult; F17.210 Nicotine dependence, cigarettes, uncomplicated; Z71.6 Tobacco abuse counseling; F11.20 Opioid dependence, uncomplicated; F10.10 Alcohol abuse, uncomplicated
CPT/HCPCS: 36415; 71045; 73590; 73718; 80048; 80053; 80202; 82565; 82947; 83605; 85025; 85027; 85652; 86140; 87040; 87389; 97110; 97116; 97140; 97162; 99285; J1650; J2270; J2543; J3370; J3371

== ENCOUNTER 2025-06-02 10:55 | Emergency (ER) | payer MEDICAID, SELFPAY ==
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
[2025-06-02 11:14] VITALS: BP 117/69; PULSE 97; RESP 16; TEMP 36.6; O2SAT 98; BMI 41.3
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
--- NOTE | 2025-06-02 12:28 | PC.NURSE ---
Patient called back for DC from [facility], not noted to be in [facility], not outside dept. XOCHILT Adams called patient, no answer.
== END 2025-06-02 12:49 | disposition left against medical advice (07) ==
PROVIDERS: Emergency Provider Emergency Medicine; PCP Physician Assistant
DX: S00.03XA Contusion of scalp, initial encounter (principal); S40.021A Contusion of right upper arm, initial encounter; M79.601 Pain in right arm; R07.89 Other chest pain; R51.9 Headache, unspecified; F17.210 Nicotine dependence, cigarettes, uncomplicated; Y04.2XXA Assault by strike against or bumped into by another person, initial encounter; Y93.9 Activity, unspecified; Y92.410 Unspecified street and highway as the place of occurrence of the external cause; Y99.8 Other external cause status
CPT/HCPCS: 29125; 70450; 71101; 73060; 73090; 73130; 99281; 99284

== ENCOUNTER → 2025-06-02 11:16 | Outpatient (BNV) | payer MEDICAID, SELFPAY | PROVIDERS: Emergency Provider Emergency Medicine; PCP Physician Assistant; Visit Provider Radiology Diagnostic Radiology | DX: J34.1 Cyst and mucocele of nose and nasal sinus (principal); R07.89 Other chest pain; M79.643 Pain in unspecified hand; M79.631 Pain in right forearm; M79.621 Pain in right upper arm | CPT/HCPCS: 70450; 71101; 73060; 73090; 73130 ==